=== PATIENT | female | born 1990 | race Caucasian/White ===

== ENCOUNTER 2016-09-23 20:07 | Emergency (ER) | payer OTHER ==
[~2016-09-23] VITALS: Ht 165.1 cm; Wt 110.2 kg
[~2016-09-23 20:07] MED LIST: ACET-1256 PO; ALBU1AER9 INH; FLUT0.15 NAE; FLX/5 PO; MEDR150I IM
[2016-09-23 20:44] VITALS: TEMP 36.7; Ht 165.1 cm; Wt 110.2 kg
[2016-09-23] MEDS ORDERED: BSP/10 PO (20:55)
[2016-09-23] MEDS ORDERED: VST25HP PO (20:55)
[2016-09-23] MEDS ORDERED: LXP10 PO (20:55)
[2016-09-23] MEDS ORDERED: ESCI1TAB6 PO (20:55)
[2016-09-23] MEDS ORDERED: HYDR-5688 PO (21:41)
[2016-09-23] MEDS ORDERED: NORCO 5/325MG HOME PACK PO ONE (21:45)
[2016-09-23] MEDS ORDERED: NEOMYCIN/POLYMYX/HYDROCORT OT SUSP 10 ML BTL OT ONE (21:45)
[2016-09-23 22:10] VITALS: BP 128/86; PULSE 100; O2SAT 97
--- NOTE | 2016-09-25 00:06 | EMERGENCY ROOM VISIT NOTE ---
ED Visit Note First contact with patient: 21:23 Chief Complaint: Left ear pain. History of Present Illness: Ms. Mendez is a 25-year-old white female who ambulates into the ED accompanied by her daughter complaining of severe left ear pain. Patient reports over the last 4-5 days she reports that she has had nasal and sinus congestion. Today approximately 3 hours earlier she reports she was not able to hear out of her left ear. She reports she put a Q-tip in the ear to add pressure against the loving to see if she could hear better and she could not. Then approximately an hour later she started developing left ear pain. Initially it was mildly gradually increased in intensity. Currently she describes it as a sharp and throbbing sensation. She rates her discomfort 10/ 10. The pain is radiating into the congregation, into the preauricular area, into the angle of the mandible and the lateral aspect of the neck. Her pain worsens with palpation of the ear or lying on that side of her head. She has not identified any alleviating factors related to the pain. She has not taken any medications for pain prior to arrival at the hospital. Associated with her pain she reports she has been having chills but no ruthann fever, she still cannot hear out of her ear and she is still having congestion. She denies skin eruptions, skin color changes, dizziness, lightheadedness, ear drainage, sore throat, difficulty speaking, neck pain/stiffness, cough, wheezing , shortness of breath, decreased appetite, nausea/vomiting. Review of Systems: As noted above in history of present illness. 8 body systems were reviewed and found to be negative as noted above. Past Medical History: Bronchitis, pneumonia, status post unspecified ankle surgery and tonsillectomy. Current Medications: Flonase, Tylenol, Lexapro, Buspirone, Escitalopram, Hydroxyzine Pamoate, Allergies to Medications: Patient denies. Social History: Patient is currently employed; she feels safe in her home environment; she admits to tobacco and alcohol use. Physical Examination: Vital Signs: Date Time Temp Pulse Resp B/P Pulse Ox O2 Delivery O2 Flow Rate FiO2 09/23/16 22:10 100 18 128/86 97 09/23/16 20:44 36.7 118 20 120/77 94 Room Air GENERAL: 25-year-old female in moderate distress due to pain, nontoxic-appearing , afebrile and hemodynamically stable. NEUROLOGICAL: Awake, alert and oriented to person, place and time. Answering questions appropriately and following commands. Normal gait. Good hand eye coordination. No focal motor or sensory deficits. SKIN: Warm, dry and pink. No soft tissue eruptions or trauma noted. HEENT: Atraumatic and normocephalic. PERRLA. Sclera white and conjunctiva pink without drainage. No drainage from naris but moderate audible congestion. No erythema or tenderness over the frontal or maxillary sinuses. Right external ear is nontender. Right auditory canal is pink and patent. Right tympanic membrane was nonerythematous or edematous within normal light reflex. Left external ear was exquisitely tender. Positive tracheal tenderness. The visible portion of the canal was erythematous and edematous. Only a very small portion of the tympanic membrane was visualized and was not erythematous or edematous. No tenderness or erythema over the mastoid processes. No malocclusion. No oral trauma. Airway pain. Uvula midline. No posterior pharyngeal erythema or edema or exudates. Speech normal. No lymphadenopathy. Trachea midline. No jugular venous distention. BACK: No tenderness over the bony cervical and thoracic spine. No nuchal rigidity. Full range of motion of the cervical spine. THORAX: Lungs sounds are clear to auscultation and equal bilaterally with symmetrical chest wall. ABDOMEN: Obese, soft and nontender. Positive bowel sounds in all quadrants. No guarding, rigidity or organomegaly. ED Course: Patient is assessed as noted above. 4 drops of Cortisporin otic suspension was placed in the left ear canal. I did offer the patient narcotic pain control but she drove to the hospital was not able to take it. Patient was educated about tonight's findings and instructed on her treatment plan; she verbalizes understanding and agreement with this plan. Clinical Impression: Acute otitis externa. Congestion. Disposition: Patient discharged home in stable condition accompanied by her daughter; prior to departure she was reassessed and subjectively reported she was feeling the same. Plan: Patient was prescribed Cortisporin otic suspension and instructed to use 4 drops in the left ear canal 4 times a day for 5-7 days. Patient was placed on a sliding pain medication scale of ibuprofen, Mcclusky and acetaminophen; narcotic precautions were discussed with the patient. Patient was encouraged use an noai-zdk-bcaphne decongestant. Patient was encouraged to follow-up with her family physician for recheck. Patient was encouraged not to put anything even bathwater into her left ear until resolution of pain. Patient was encouraged return to the ED for worsening pain, fevers, bloody ear drainage or any new/concerning symptoms.
[2016-11-25] MEDS ORDERED: HYDR50CA2 PO (21:08)
[2016-11-25] MEDS ORDERED: NRN100 PO (21:08)
[2017-04-28] MEDS ORDERED: FLNIN/ NAE (16:24)
[2017-04-28] MEDS ORDERED: LRS20 PO (16:24)
[2017-04-28] MEDS ORDERED: ULT50 PO (16:24)
[2017-04-28] MEDS ORDERED: NRN/600 PO (16:24)
== END 2016-09-23 22:10 | disposition home or self-care (01) ==
LOC: C.EDB 20:09 → C.EDD 22:10
DX: H60.502 Unspecified acute noninfective otitis externa, left ear (principal); R09.81 Nasal congestion; Z87.01 Personal history of pneumonia (recurrent); Z79.899 Other long term (current) drug therapy; F17.200 Nicotine dependence, unspecified, uncomplicated

== ENCOUNTER 2016-11-12 19:08 | Emergency (ER) | payer OTHER ==
[~2016-11-12] VITALS: Ht 165.1 cm; Wt 111.9 kg
[~2016-11-12 19:08] MED LIST changes: -ALBU1AER9 INH; +BSP/10 PO; +ESCI1TAB6 PO; -FLX/5 PO; +HYDR-5688 PO; +LXP10 PO; -MEDR150I IM; +VST25HP PO
[2016-11-12 19:12] VITALS: TEMP 36.7; Ht 165.1 cm; Wt 111.9 kg
[2016-11-12] MEDS ORDERED: BUPR100T8 PO (19:45)
--- NOTE | 2016-11-12 20:11 | DIAGNOSTIC IMAGING REPORT ---
THORACIC SPINE 3 VIEWS HISTORY: Pain upper back pain COMPARISON: None. FINDINGS: There is no fracture. No subluxation. Disc spaces are preserved. IMPRESSION: No fracture or subluxation within the thoracic spine. Electronically signed by: Jesus Stanley M.D. 11/12/2016 8:10 PM Dictated Date/Time: 11/12/2016 8:10 PM
--- NOTE | 2016-11-12 20:11 | DIAGNOSTIC IMAGING REPORT ---
RIGHT SHOULDER MIN 2 VIEWS ROUTINE CLINICAL HISTORY: right shoulder pain Right pain COMPARISON: None. DISCUSSION: The bones and joint spaces appear intact. There is no evidence of fracture, dislocation or bony disease. There is no evidence for soft tissue swelling. IMPRESSION: Negative study. Electronically signed by: Jesus Stanley M.D. 11/12/2016 8:10 PM Dictated Date/Time: 11/12/2016 8:09 PM
[2016-11-12] MEDS ORDERED: MoRPHine SULFATE 10 MG/ML CARP/VIAL IM STA (20:14)
[2016-11-12] MEDS ORDERED: KETOROLAC TROMETHAMINE 60 MG/2 ML VIAL IM STA (20:14)
[2016-11-12] MEDS ORDERED: HYDR-5688 PO (21:06)
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
[2016-11-12] MEDS ORDERED: NORCO 5/325MG HOME PACK PO ONE (21:15)
[2016-11-12 21:22] VITALS: BP 125/92; PULSE 95; O2SAT 98
[2016-11-25] MEDS ORDERED: HYDR50CA2 PO (21:08)
[2016-11-25] MEDS ORDERED: NRN100 PO (21:08)
[2017-04-28] MEDS ORDERED: NRN/600 PO (16:24)
[2017-04-28] MEDS ORDERED: ULT50 PO (16:24)
[2017-04-28] MEDS ORDERED: LRS20 PO (16:24)
[2017-04-28] MEDS ORDERED: FLNIN/ NAE (16:24)
== END 2016-11-12 21:24 | disposition home or self-care (01) ==
LOC: C.EDB 19:11 → C.EDD 21:24
DX: M25.511 Pain in right shoulder (principal); F17.210 Nicotine dependence, cigarettes, uncomplicated; J45.909 Unspecified asthma, uncomplicated; Z79.899 Other long term (current) drug therapy

== ENCOUNTER 2016-12-20 14:43 | Emergency (ER) | payer OTHER ==
[~2016-12-20] VITALS: Ht 165.1 cm; Wt 114.0 kg
[~2016-12-20 14:43] MED LIST changes: -BSP/10 PO; +BUPR100T8 PO; -ESCI1TAB6 PO; -HYDR-5688 PO; +HYDR50CA2 PO; +NRN100 PO; -VST25HP PO
[2016-12-20 14:51] VITALS: Ht 165.1 cm; Wt 114.0 kg
[2016-12-20] MEDS ORDERED: SODIUM CHLORIDE 0.9% 1000ML 1,000 ML IV STA (15:23)
[2016-12-20] MEDS ORDERED: MoRPHine SULFATE 4 MG/ML 1 ML CARP\\VIAL IV STA (15:31)
[2016-12-20] MEDS ORDERED: ONDANSETRON INJ 2 MG/ML 2 ML VIAL IV STA (15:31)
--- NOTE | 2016-12-20 15:35 | EMERGENCY ROOM VISIT NOTE ---
History Report prepared by [place]: Drake Pérez Under the Supervision of: Dr. Amna Azar M.D. First contact with patient: 15:04 Chief Complaint: ABDOMINAL PAIN Stated Complaint: LOWER ABD PAIN Nursing Triage Summary: left sided abd pain no vag bleeding or discharge or urinary complaints History of Present Illness The patient is a 26 year old female who presents to the Emergency Room with complaints of persistent left-sided abdominal pain that started last night. The patient cannot move or cough without significant pain. The pain was initially sharp at onset last night. The patient suddenly felt like her abdomen was "pulling" and "ripping" after laying back earlier today. The patient currently describes a burning sensation in the area when she is sitting still. The patient denies urinary symptoms. The patient denies the possibility of secondary to having a negative test last week performed by her PCP. The patient denies any past surgical history of the abdomen. She recently started a new medication for inflammation in her hip. The patient smokes about one pack of cigarettes per day. Source of History: patient Onset: last night Position: abdomen (left side) Quality: burning, sharp Timing: other (persistent) Modifying Factors (Worsening): movement Associated Symptoms: No urinary symptoms Review of Systems See HPI for pertinent positives & negatives. A total of 10 systems reviewed and were otherwise negative. Past Medical & Surgical Medical Problems: (1) Abdominal cramping (2) Abdominal pain (3) Ankle fracture (4) Asthma (5) Asthma (6) bent tailbone (7) Bronchitis (8) Bronchitis (9) Bronchitis (10) Concussion (11) Costochondral pain (12) Dehydration (13) Emphysema lung (14) Fever (15) Hand laceration (16) Headache (17) Injury, nerve, sciatic (18) LABOR (19) Left hip pain (20) Low back pain (21) Nausea vomiting and diarrhea (22) Nausea vomiting and diarrhea (23) Neck pain (24) Pharyngitis (25) labor (26) Sinusitis (27) Spasm of back muscles (28) Ulcer (29) Vomiting and diarrhea Surgical Problems: (1) History of tonsillectomy Family History Cancer Diabetes mellitus FH: kidney disease Gallbladder disease Heart disease Hypertension Social History Smoking Status: Current Every Day Smoker Alcohol Use: none Marital Status: single Housing Status: lives with family Occupation Status: employed Current/Historical Medications Scheduled Bupropion (Wellbutrin Sr), 100 MG PO QAM Escitalopram Oxalate (Escitalopram Oxalate), 20 MG PO QAM Omeprazole (Prilosec), 20 MG PO DAILY Scheduled PRN Albuterol Hfa (Ventolin Hfa), 2-4 PUFFS INH Q6H PRN for SOB/Wheezing Fluticasone Propionate (Nasal) (Flonase Allergy Relief), 2 SPRAYS ASHA DAILY PRN for Nasal Congestion Hydroxyzine Pamoate (Vistaril), 50 MG PO HS PRN for Anxiety Allergies Coded Allergies: Fish Allergy (Verified Allergy, Unknown, ANAPHYLAXIS, 11/25/16) allergic to all fish and seafood Shellfish Allergy (Verified Allergy, Unknown, ANAPHYLAXIS, 11/25/16) allergic to all fish and seafood Physical Exam Vital Signs Date Time Temp Pulse Resp B/P (MAP) Pulse Ox O2 Delivery O2 Flow Rate FiO2 12/20/16 18:36 37.1 72 14 131/89 95 12/20/16 18:06 72 95 12/20/16 18:01 131/89 12/20/16 17:36 79 96 12/20/16 17:31 140/84 12/20/16 17:23 77 96 12/20/16 17:18 81 97 12/20/16 17:08 140/83 12/20/16 16:30 138/82 12/20/16 16:18 75 14 100 12/20/16 16:13 78 17 100 12/20/16 16:04 85 12/20/16 16:00 120/91 12/20/16 15:52 85 18 123/82 100 Room Air 12/20/16 15:49 123/82 12/20/16 14:51 37.1 94 18 128/88 98 Room Air Physical Exam Vital signs reviewed. General: Well-appearing female, in no significant distress. HEENT: No scleral icterus, PERRLA, neck supple. Atraumatic. Cardiovascular: Regular rate and rhythm, no extra sounds. Pulmonary: Clear to auscultation bilaterally, normal work of breathing. Abdomen: Obese, soft, left-sided tenderness, no rebound or guarding. Musculoskeletal: Atraumatic, no peripheral edema. Neurologic: Patient awake alert and oriented x 3 Skin: Warm, dry, no rash Medical Decision & Procedures ER Provider Diagnostic Interpretation: Radiology results as stated below per my review and radiologist interpretation: CT SCAN OF THE ABDOMEN AND PELVIS WITH IV CONTRAST CLINICAL HISTORY: Left lower quadrant abdominal pain. COMPARISON STUDY: Abdominal CT dated 02/07/2016. TECHNIQUE: Following the IV administration of 115 cc of Optiray 320, CT scan of the abdomen and pelvis is performed from the lung bases to the proximal femora. Images are reviewed in the axial, sagittal, and coronal planes. IV contrast was administered without complication. Automated dose control exposure was utilized. The examination is degraded by large body habitus, and by streak artifact from the body wall abutting the CT gantry. CT DOSE: 1296.33 mGy.cm FINDINGS: Lung bases: The heart is normal in size and without pericardial effusion. The lung bases are clear. Liver: The contrast-enhanced liver is enlarged, measuring 21.7 cm in length. Liver demonstrates diffusely diminished attenuation consistent with hepatic steatosis. There is no intrahepatic biliary ductal dilatation. The hepatic veins and portal veins are patent. Gallbladder: Unremarkable. Spleen: Normal in size and attenuation. Pancreas: Unremarkable. Adrenal glands: Unremarkable. Kidneys: The contrast enhanced kidneys are normal in size and without hydronephrosis. The kidneys enhance symmetrically. Abdominal vasculature: The abdominal aorta is normal in course and caliber. Bowel: The small bowel and colon are normal in course and caliber. Colonic fecal retention is observed. The appendix is well-visualized and normal. Peritoneum: There is no intraperitoneal free air or abdominal ascites. There is a small fat-containing umbilical hernia. Lymphadenopathy: None. Pelvic viscera: The bladder, uterus, and adnexa are normal as visualized. There are bilateral ovarian follicles. A dominant follicle in the left ovary measures up to 2.9 cm. Skeletal structures: No lytic or blastic lesions are seen. IMPRESSION: 1. There are no acute infectious or inflammatory findings in the abdomen or pelvis. 2. Hepatomegaly and hepatic steatosis. Electronically signed by: Stephane Booth M.D. 12/20/2016 4:58 PM Dictated Date/Time: 12/20/2016 4:54 PM Laboratory Results 12/20/16 15:36 Red Blood Count 4.25, Mean Corpuscular Volume 89.4, Mean Corpuscular Hemoglobin 30.8, Mean Corpuscular Hemoglobin Concent 34.5, Mean Platelet Volume 12.1, Neutrophils (%) (Auto) 65.2, Lymphocytes (%) (Auto) 27.1, Monocytes (%) (Auto) 5.9, Eosinophils (%) (Auto) 1.4, Basophils (%) (Auto) 0.2, Neutrophils # (Auto) 6.12, Lymphocytes # (Auto) 2.54, Monocytes # (Auto) 0.55, Eosinophils # (Auto) 0.13, Basophils # (Auto) 0.02 12/20/16 15:36 Test 12/20/16 15:36 12/20/16 17:30 White Blood Count 9.38 K/uL (4.8-10.8) Red Blood Count 4.25 M/uL (4.2-5.4) Hemoglobin 13.1 g/dL (12.0-16.0) Hematocrit 38.0 % (37-47) Mean Corpuscular Volume 89.4 fL (80-100) Mean Corpuscular Hemoglobin 30.8 pg (25-34) Mean Corpuscular Hemoglobin Concent 34.5 g/dl (32-36) Platelet Count 217 K/uL (130-400) Mean Platelet Volume 12.1 fL (7.4-10.4) Neutrophils (%) (Auto) 65.2 % Lymphocytes (%) (Auto) 27.1 % Monocytes (%) (Auto) 5.9 % Eosinophils (%) (Auto) 1.4 % Basophils (%) (Auto) 0.2 % Neutrophils # (Auto) 6.12 K/uL (1.4-6.5) Lymphocytes # (Auto) 2.54 K/uL (1.2-3.4) Monocytes # (Auto) 0.55 K/uL (0.11-0.59) Eosinophils # (Auto) 0.13 K/uL (0-0.5) Basophils # (Auto) 0.02 K/uL (0-0.2) RDW Standard Deviation 43.0 fL (36.4-46.3) RDW Coefficient of Variation 13.2 % (11.5-14.5) Immature Granulocyte % (Auto) 0.2 % Immature Granulocyte # (Auto) 0.02 K/uL (0.00-0.02) Anion Gap 8.0 mmol/L (3-11) Est Creatinine Clear Calc Drug Dose 141.9 ml/min Estimated GFR () 125.3 Estimated GFR (Non- 108.1 BUN/Creatinine Ratio 19.7 (10-20) Calcium Level 9.2 mg/dl (8.5-10.1) Total Bilirubin 0.3 mg/dl (0.2-1) Direct Bilirubin < 0.1 mg/dl (0-0.2) Aspartate Amino Transf (AST/SGOT) 15 U/L (15-37) Alanine Aminotransferase (ALT/SGPT) 31 U/L (12-78) Alkaline Phosphatase 138 U/L (45-117) Total Protein 6.9 gm/dl (6.4-8.2) Albumin 3.6 gm/dl (3.4-5.0) Lipase 112 U/L (73-393) Human Chorionic Gonadotropin, Qual NEG (NEG) Urine Color YELLOW Urine Appearance CLEAR (CLEAR) Urine pH 5.5 (4.5-7.5) Urine Specific [place] 1.019 (1.000-1.030) Urine Protein NEG (NEG) Urine Glucose (UA) NEG (NEG) Urine Ketones NEG (NEG) Urine Occult Blood NEG (NEG) Urine Nitrite NEG (NEG) Urine Bilirubin NEG (NEG) Urine Urobilinogen NEG (NEG) Urine Leukocyte Esterase NEG (NEG) Laboratory results per my review. Medications Administered Medications (Trade) Dose Ordered Sig/Eva Route Start Time Stop Time Status Last Admin Dose Admin Sodium Chloride 1,000 ml @ 999 mls/hr Q1H1M STAT IV 12/20/16 15:23 12/20/16 16:23 DC 12/20/16 15:45 999 MLS/HR Morphine Sulfate (MoRPHine SULFATE INJ) 4 mg NOW STAT IV 12/20/16 15:31 12/20/16 15:33 DC 12/20/16 15:46 4 MG Ondansetron HCl (Zofran Inj) 4 mg NOW STAT IV 12/20/16 15:31 12/20/16 15:33 DC 12/20/16 15:45 4 MG Ketorolac Tromethamine (Toradol Inj) 30 mg NOW STAT IV 12/20/16 17:44 12/20/16 17:45 DC 12/20/16 17:49 30 MG ED Course 1520: Past medical records reviewed. The patient was evaluated in room A10. A complete history and physical examination was performed. 1523: NSS 1000 ml @ 999 mls/hr. 1531: Zofran 4 mg IV, Morphine Sulfate 4 mg IV. 1744: Toradol 30 mg IV. 1835: Discussed the workup with the patient. She is ready for discharge. Medical Decision Differential diagnosis: Etiologies such as appendicitis, diverticulitis, PUD, biliary pathology, UTI, pancreatitis, obstruction, mesenteric ischemia, aortic pathology, infections, inflammatory bowel disease, renal colic, as well as others were entertained. Blood Pressure Screening: Patient was found to have a slightly elevated blood pressure that is likely due to circumstances. I do not believe that the patient requires hypertension monitoring. Medication Reconciliation: I attest that I have personally reviewed the patient' s current medication list. This pt was evaluated and appeared to be in no distress. IV access was evaluated and appeared to be in some discomfort. Pt was placed on the front desk monitor. Pt was hydrated with NSS, given IV morphine and zofran for pain. CT scan of abd/pain was performed and is negative for acute intracranial abnl. Lab work is unrevealing. UA and preg are negative. Pt was given IV toradol for continued pain. She was informed of the findings. Smoking cessation was discussed. She was encouraged to f/u with PCP this week and to return to the ED for worsening of symptoms or any medical concerns. Impression Primary Impression: Left sided abdominal pain Scribe Attestation The scribe's documentation has been prepared under my direction and personally reviewed by me in its entirety. I confirm that the note above accurately reflects all work, treatment, procedures, and medical decision making performed by me. Departure Information Dispostion Home / Self-Care Prescriptions Omeprazole (PRILOSEC) 20 Mg Capcr 20 MG PO DAILY, #30 CAP Prov: Amna Azar M.D. 12/20/16 Referrals No Doctor, Assigned (PCP) Forms HOME CARE DOCUMENTATION FORM, IMPORTANT VISIT INFORMATION Patient Instructions My [facility] Additional Instructions Diagnosis: Left-sided abdominal pain Tylenol 650 mg every 6 hours as needed for pain. Prilosec 20 mg daily for 30 days. Follow-up with your physician this week for reevaluation. Avoid greasy and spicy foods. Avoid alcohol, coffee, soda, aspirin, Aleve and ibuprofen. Return to the emergency department for worsening of symptoms or any medical concerns.
[2016-12-20 15:59] LABS: BASO % 0.2 %; BASO ABS # 0.02 K/uL (0-0.2); COMPLETE YES; EOS % 1.4 %; IG% 0.2 %; LYMPH % 27.1 %; LYMPH ABS # 2.54 K/uL (1.2-3.4); MEAN CELL VOLUME 89.4 fL (80-100); MEAN CORPUSCULAR HEMOGLOBIN 30.8 pg (25-34); MEAN CORPUSCULAR HGB CONC 34.5 g/dl (32-36); MEAN PLATELET VOLUME 12.1 fL (7.4-10.4); MONO % 5.9 %; NEUT % 65.2 %; PLATELET COUNT 217 K/uL (130-400); RED BLOOD COUNT 4.25 M/uL (4.2-5.4); WHITE BLOOD COUNT 9.38 K/uL (4.8-10.8)
[2016-12-20 16:15] LABS: ALT/SGPT 31 U/L (12-78); AST/SGOT 15 U/L (15-37); BLOOD UREA NITROGEN 15 mg/dl (7-18); BUN/CREATININE RATIO 19.7 (10-20); CALCIUM 9.2 mg/dl (8.5-10.1); CARBON DIOXIDE 25 mmol/L (21-32); CHLORIDE 107 mmol/L (98-107); CREATININE 0.77 mg/dl (0.60-1.20); GLUCOSE 80 mg/dl (70-99); POTASSIUM 3.9 mmol/L (3.5-5.1); SODIUM 140 mmol/L (136-145)
[2016-12-20 16:16] LABS: PREG INTERNAL NEGATIVE QC NEG CLEAR BACKGROUND; PREG INTERNAL POSITIVE QC POS CONTROL LINE
[2016-12-20 16:17] LABS: ALKALINE PHOSPHATASE 138 U/L (45-117)
[2016-12-20] MEDS ORDERED: VNTHFA/IN INH (16:25)
--- NOTE | 2016-12-20 16:59 | DIAGNOSTIC IMAGING REPORT ---
CT SCAN OF THE ABDOMEN AND PELVIS WITH IV CONTRAST CLINICAL HISTORY: Left lower quadrant abdominal pain. COMPARISON STUDY: Abdominal CT dated 02/07/2016. TECHNIQUE: Following the IV administration of 115 cc of Optiray 320, CT scan of the abdomen and pelvis is performed from the lung bases to the proximal femora. Images are reviewed in the axial, sagittal, and coronal planes. IV contrast was administered without complication. Automated dose control exposure was utilized. The examination is degraded by large body habitus, and by streak artifact from the body wall abutting the CT gantry. CT DOSE: 1296.33 mGy.cm FINDINGS: Lung bases: The heart is normal in size and without pericardial effusion. The lung bases are clear. Liver: The contrast-enhanced liver is enlarged, measuring 21.7 cm in length. Liver demonstrates diffusely diminished attenuation consistent with hepatic steatosis. There is no intrahepatic biliary ductal dilatation. The hepatic veins and portal veins are patent. Gallbladder: Unremarkable. Spleen: Normal in size and attenuation. Pancreas: Unremarkable. Adrenal glands: Unremarkable. Kidneys: The contrast enhanced kidneys are normal in size and without hydronephrosis. The kidneys enhance symmetrically. Abdominal vasculature: The abdominal aorta is normal in course and caliber. Bowel: The small bowel and colon are normal in course and caliber. Colonic fecal retention is observed. The appendix is well-visualized and normal. Peritoneum: There is no intraperitoneal free air or abdominal ascites. There is a small fat-containing umbilical hernia. Lymphadenopathy: None. Pelvic viscera: The bladder, uterus, and adnexa are normal as visualized. There are bilateral ovarian follicles. A dominant follicle in the left ovary measures up to 2.9 cm. Skeletal structures: No lytic or blastic lesions are seen. IMPRESSION: 1. There are no acute infectious or inflammatory findings in the abdomen or pelvis. 2. Hepatomegaly and hepatic steatosis. Electronically signed by: Stephane Booth M.D. 12/20/2016 4:58 PM Dictated Date/Time: 12/20/2016 4:54 PM
[2016-12-20] MEDS ORDERED: OPTIRAY 320 IV PRN (17:00)
[2016-12-20 17:42] LABS: URINE APPEARANCE CLEAR (CLEAR); URINE BILIRUBIN NEG (NEG); URINE COLOR YELLOW; URINE NITRITE NEG (NEG); URINE PH 5.5 (4.5-7.5); URINE SPECIFIC GRAVITY 1.019 (1.000-1.030); UROBILINOGEN NEG (NEG); ZZUR CULT IF INDIC CLEAN CATCH NO
[2016-12-20] MEDS ORDERED: KETOROLAC TROMETHAMINE 30 MG/ML VIAL IV STA (17:44)
[2016-12-20 17:50] LABS: MANUAL MICROSCOPIC REQUIRED? NO; REVIEW REQ? NO
[2016-12-20] MEDS ORDERED: PRLSR20 PO (18:13)
[2016-12-20 18:36] VITALS: BP 131/89; PULSE 72; TEMP 37.1; O2SAT 95
== END 2016-12-20 18:40 | disposition home or self-care (01) ==
LOC: C.EDB 14:43 → C.EDA 18:40
DX: R10.9 Unspecified abdominal pain (principal); J45.909 Unspecified asthma, uncomplicated; J43.9 Emphysema, unspecified; F17.200 Nicotine dependence, unspecified, uncomplicated; Z87.820 Personal history of traumatic brain injury; Z87.81 Personal history of (healed) traumatic fracture; Z98.890 Other specified postprocedural states; Z79.899 Other long term (current) drug therapy; Z91.018 Allergy to other foods; Z80.9 Family history of malignant neoplasm, unspecified; Z83.3 Family history of diabetes mellitus; Z84.1 Family history of disorders of kidney and ureter; Z83.79 Family history of other diseases of the digestive system; Z82.49 Family history of ischemic heart disease and other diseases of the circulatory system

== ENCOUNTER 2016-12-24 16:12 | Emergency (ER) | payer OTHER ==
[~2016-12-24] VITALS: Ht 165.1 cm; Wt 114.5 kg
[~2016-12-24 16:12] MED LIST changes: -ACET-1256 PO; -NRN100 PO; +PRLSR20 PO; +VNTHFA/IN INH
[2016-12-24 16:15] VITALS: TEMP 36.9; Ht 165.1 cm; Wt 114.5 kg
[2016-12-24] MEDS ORDERED: ONDANSETRON INJ 2 MG/ML 2 ML VIAL IV STA (16:46)
[2016-12-24] MEDS ORDERED: SODIUM CHLORIDE 0.9% 1000ML 1,000 ML IV STA (16:46)
[2016-12-24] MEDS ORDERED: MoRPHine SULFATE 10 MG/ML CARP/VIAL IV STA (16:46)
--- NOTE | 2016-12-24 16:57 | EMERGENCY ROOM VISIT NOTE ---
History First contact with patient: 16:19 Chief Complaint: ABDOMINAL PAIN Stated Complaint: SEVERE PAIN IN LOWER ABDOMEN-PHYSICIAN REFERRED Nursing Triage Summary: Abdominal pain left lower quadrant for a week and a half which has progressively gotten worse. History of Present Illness The patient is a 26 year old female who presents to the Emergency Room with complaints of abdominal pain. The patient has had abdominal pain for the last 1.5 weeks. She was seen here 4 days ago and had an unremarkable workup including laboratory studies and CT of the abdomen and pelvis. The patient saw her family doctor today and had a pelvic ultrasound and blood work. She states that her pain is severe and persistent so she presents to the emergency department. She rates her discomfort a 10/10. She denies any fevers or chills. She denies any pain in her chest or trouble breathing. She denies any urinary symptoms. Review of Systems A 10 system review of systems was completed with positives and pertinent negatives listed in the HPI. Past Medical/Surgical History Medical Problems: (1) Abdominal cramping (2) Abdominal pain (3) Ankle fracture (4) Asthma (5) Asthma (6) bent tailbone (7) Bronchitis (8) Bronchitis (9) Bronchitis (10) Concussion (11) Costochondral pain (12) Dehydration (13) Emphysema lung (14) Fever (15) Hand laceration (16) Headache (17) Injury, nerve, sciatic (18) LABOR (19) Left hip pain (20) Low back pain (21) Nausea vomiting and diarrhea (22) Nausea vomiting and diarrhea (23) Neck pain (24) Pharyngitis (25) labor (26) Sinusitis (27) Spasm of back muscles (28) Ulcer (29) Vomiting and diarrhea Surgical Problems: (1) History of tonsillectomy Family History Cancer Diabetes mellitus FH: kidney disease Gallbladder disease Heart disease Hypertension Social History Smoking Status: Current Every Day Smoker Alcohol Use: none Marital Status: single Housing Status: lives with family Occupation Status: employed Current/Historical Medications Scheduled Bupropion (Wellbutrin Sr), 100 MG PO QAM Escitalopram Oxalate (Escitalopram Oxalate), 20 MG PO QAM Scheduled PRN Albuterol Hfa (Ventolin Hfa), 2-4 PUFFS INH Q6H PRN for SOB/Wheezing Fluticasone Propionate (Nasal) (Flonase Allergy Relief), 2 SPRAYS ASHA DAILY PRN for Nasal Congestion Hydroxyzine Pamoate (Vistaril), 50 MG PO HS PRN for Anxiety Oxycodone Ir (Roxicodone Ir), 1 TAB PO Q6 PRN for Pain Allergies Coded Allergies: Fish Allergy (Verified Allergy, Unknown, ANAPHYLAXIS, 11/25/16) allergic to all fish and seafood Shellfish Allergy (Verified Allergy, Unknown, ANAPHYLAXIS, 11/25/16) allergic to all fish and seafood Physical Exam Vital Signs Date Time Temp Pulse Resp B/P (MAP) Pulse Ox O2 Delivery O2 Flow Rate FiO2 12/24/16 18:11 88 15 153/87 98 Room Air 12/24/16 17:12 81 12/24/16 16:15 36.9 98 18 124/82 97 Room Air Physical Exam VITALS: Vitals are noted on the nurse's note and reviewed by myself. Vital signs stable. The patient is afebrile. GENERAL: This is a 26-year-old female, in no acute distress, nondiaphoretic, well-developed well-nourished. SKIN: The skin was without rashes, erythema, edema, or bruising. There is no tenting of the skin. Capillary reflex less than 2 seconds. HEAD: Normocephalic atraumatic. EARS: The external ears are normal in appearance. EYES: Pupils equal round and reactive to light and accommodation. Conjunctivae without injection, sclerae without icterus. Extraocular movements intact. NOSE: Patent, turbinates without inflammation or discharge. MOUTH: Mucous membranes moist. Tonsils are not enlarged. Pharynx without erythema or exudate. Uvula midline. Airway patent. Tongue does not deviate. NECK: Supple without nuchal rigidity. No lymphadenopathy. No thyromegaly. Cervical spine is nontender. No JVD. HEART: Regular rate and rhythm without murmurs gallops or rubs. LUNGS: Clear to auscultation bilaterally without wheezes, rales or rhonchi. No retractions or accessory muscle use. ABDOMEN: Positive bowel sounds x 4. Soft, moderate left lower quadrant tenderness, without masses or organomegaly. Rivera sign negative. MUSCULOSKELETAL: No muscle atrophy, erythema, or edema noted. Full range of motion in all extremities. Strength 5/5 throughout. NEURO: Patient was alert and oriented to person place and time. No focal neurological deficits. Medical Decision & Procedures ER Provider Diagnostic Interpretation: Report from outpatient transvaginal ultrasound completed today at 3:42 PM was reviewed. The impression was #1 5. uterus. Number to bulb this appearance of the posterior myometrium without focal mass identified. Consider six-month follow-up. #3 left ovarian follicles/cyst measuring up to 26 mm. Laboratory Results 12/24/16 16:50 Red Blood Count 4.59, Mean Corpuscular Volume 88.5, Mean Corpuscular Hemoglobin 29.4, Mean Corpuscular Hemoglobin Concent 33.3, Mean Platelet Volume 11.9, Neutrophils (%) (Auto) 65.6, Lymphocytes (%) (Auto) 26.5, Monocytes (%) (Auto) 5.5, Eosinophils (%) (Auto) 1.8, Basophils (%) (Auto) 0.4, Neutrophils # (Auto) 6.27, Lymphocytes # (Auto) 2.53, Monocytes # (Auto) 0.53, Eosinophils # (Auto) 0.17, Basophils # (Auto) 0.04 12/24/16 16:50 Test 12/24/16 16:50 White Blood Count 9.56 K/uL (4.8-10.8) Red Blood Count 4.59 M/uL (4.2-5.4) Hemoglobin 13.5 g/dL (12.0-16.0) Hematocrit 40.6 % (37-47) Mean Corpuscular Volume 88.5 fL (80-100) Mean Corpuscular Hemoglobin 29.4 pg (25-34) Mean Corpuscular Hemoglobin Concent 33.3 g/dl (32-36) Platelet Count 270 K/uL (130-400) Mean Platelet Volume 11.9 fL (7.4-10.4) Neutrophils (%) (Auto) 65.6 % Lymphocytes (%) (Auto) 26.5 % Monocytes (%) (Auto) 5.5 % Eosinophils (%) (Auto) 1.8 % Basophils (%) (Auto) 0.4 % Neutrophils # (Auto) 6.27 K/uL (1.4-6.5) Lymphocytes # (Auto) 2.53 K/uL (1.2-3.4) Monocytes # (Auto) 0.53 K/uL (0.11-0.59) Eosinophils # (Auto) 0.17 K/uL (0-0.5) Basophils # (Auto) 0.04 K/uL (0-0.2) RDW Standard Deviation 42.4 fL (36.4-46.3) RDW Coefficient of Variation 13.2 % (11.5-14.5) Immature Granulocyte % (Auto) 0.2 % Immature Granulocyte # (Auto) 0.02 K/uL (0.00-0.02) Urine Test NEG (NEG) Anion Gap 7.0 mmol/L (3-11) Est Creatinine Clear Calc Drug Dose 136.9 ml/min Estimated GFR () 119.6 Estimated GFR (Non- 103.2 BUN/Creatinine Ratio 13.0 (10-20) Calcium Level 9.4 mg/dl (8.5-10.1) Total Bilirubin 0.2 mg/dl (0.2-1) Aspartate Amino Transf (AST/SGOT) 21 U/L (15-37) Alanine Aminotransferase (ALT/SGPT) 34 U/L (12-78) Alkaline Phosphatase 153 U/L (45-117) Total Protein 7.1 gm/dl (6.4-8.2) Albumin 3.7 gm/dl (3.4-5.0) Globulin 3.4 gm/dl (2.5-4.0) Albumin/Globulin Ratio 1.1 (0.9-2) Lipase 138 U/L (73-393) Medications Administered Medications (Trade) Dose Ordered Sig/Eva Route Start Time Stop Time Status Last Admin Dose Admin Sodium Chloride 1,000 ml @ 999 mls/hr Q1H1M STAT IV 12/24/16 16:46 12/24/16 17:46 DC 12/24/16 16:46 999 MLS/HR Morphine Sulfate (MoRPHine SULFATE INJ) 6 mg NOW STAT IV 12/24/16 16:46 12/24/16 16:47 DC 12/24/16 17:03 6 MG Ondansetron HCl (Zofran Inj) 4 mg NOW STAT IV 12/24/16 16:46 12/24/16 16:47 DC 12/24/16 17:04 4 MG Morphine Sulfate (MoRPHine SULFATE INJ) 4 mg NOW STAT IV 12/24/16 18:02 12/24/16 18:04 DC 12/24/16 18:09 4 MG ED Course The patient was seen and examined. Previous visits were reviewed. The patient does not have a fever or leukocytosis. She does not have any significant electrolyte abnormality. Alkaline phosphatase is elevated at 153. Urine test was negative. Urine dip was negative for hematuria or urinary tract infection. The patient was hydrated with normal saline. She was given a total of 10 mg IV morphine and 4 mg IV Zofran. Outpatient ultrasound was reviewed as above. The patient had a negative CT scan of the abdomen and pelvis earlier this week. The patient states that the uterine fibroids are known. She was advised of the hepatic steatosis. The patient was given a small prescription for pain medication. She should follow-up with [employer] [employer] and her family doctor for further evaluation and management. She should return with any worsening symptoms. . The case was discussed with Dr. Sellers who agrees with the assessment and treatment plan. Medication Reconciliation: I attest that I have personally reviewed the patient' s current medication list. Blood pressure screening: The patient was found to have normal blood pressure on screening and does not require follow-up Medical Decision DIFFERENTIAL DIAGNOSIS: Hepatitis, cholecystitis, cholangitis, biliary colic, pancreatitis, pneumonia, subdiaphragmatic abscess, appendicitis, inguinal hernia , nephrolithiasis, inflammatory bowel disease, mesenteric adenitis, peptic ulcer disease, GERD, gastritis, pancreatitis, myocardial infarction, pericarditis, ruptured aortic aneurysm, appendicitis, gastroenteritis, bowel obstruction, splenic infarct, diverticulitis, mesenteric ischemia, metabolic, peritonitis, among others. [place] Drug Monitoring Program Search Results: patient reviewed within database, no issues identified Impression Primary Impression: Left lower quadrant pain Departure Information Dispostion Home / Self-Care Condition GOOD Prescriptions Oxycodone Ir (Roxicodone Ir) 5 Mg Tab 1 TAB PO Q6 Y for Pain, #10 TAB For Initial Treatment Prov: Maryjane Jerry PA-C 12/24/16 Referrals Jaz Lopez D.O. (PCP) Canan. Moreno MD Patient Instructions My [facility] [employer] Additional Instructions Contact [employer] tomorrow to schedule a follow-up appointment for further evaluation and management Oxy IR 1-2 tablets every 4-6 hrs as needed for worse pain. No driving or alcohol use with Oxy IR. Return with any fevers or worsening symptoms Work Instructions Return To Work: 1 day
[2016-12-24 17:23] LABS: BASO % 0.4 %; BASO ABS # 0.04 K/uL (0-0.2); COMPLETE YES; EOS % 1.8 %; HEMATOCRIT 40.6 % (37-47); IG% 0.2 %; LYMPH % 26.5 %; LYMPH ABS # 2.53 K/uL (1.2-3.4); MEAN CELL VOLUME 88.5 fL (80-100); MEAN CORPUSCULAR HEMOGLOBIN 29.4 pg (25-34); MEAN CORPUSCULAR HGB CONC 33.3 g/dl (32-36); MEAN PLATELET VOLUME 11.9 fL (7.4-10.4); MONO % 5.5 %; NEUT % 65.6 %; PLATELET COUNT 270 K/uL (130-400); RED BLOOD COUNT 4.59 M/uL (4.2-5.4); WHITE BLOOD COUNT 9.56 K/uL (4.8-10.8)
[2016-12-24 17:41] LABS: CALCIUM 9.4 mg/dl (8.5-10.1); CREATININE 0.8 mg/dl (0.60-1.20); POTASSIUM 3.7 mmol/L (3.5-5.1)
[2016-12-24 17:44] LABS: ALB/GLOB RATIO 1.1 (0.9-2)
[2016-12-24] MEDS ORDERED: MoRPHine SULFATE 4 MG/ML 1 ML CARP\\VIAL IV STA (18:02)
[2016-12-24] MEDS ORDERED: OXYC1TAB3 PO (18:03)
[2016-12-24 18:11] VITALS: BP 153/87; PULSE 88; O2SAT 98
== END 2016-12-24 18:27 | disposition home or self-care (01) ==
LOC: C.EDB 16:13 → C.EDA 18:27
DX: R10.32 Left lower quadrant pain (principal); J45.909 Unspecified asthma, uncomplicated; J43.9 Emphysema, unspecified; Z80.9 Family history of malignant neoplasm, unspecified; Z83.3 Family history of diabetes mellitus; Z84.1 Family history of disorders of kidney and ureter; Z82.49 Family history of ischemic heart disease and other diseases of the circulatory system; F17.210 Nicotine dependence, cigarettes, uncomplicated; Z79.899 Other long term (current) drug therapy

== ENCOUNTER 2016-12-29 12:54 | Inpatient (IN) | payer OTHER ==
[~2016-12-29] VITALS: Ht 165.1 cm; Wt 113.0 kg
[~2016-12-29 12:54] MED LIST changes: +OXYC1TAB3 PO; -PRLSR20 PO
[2016-12-29] MEDS ORDERED: ONDANSETRON INJ 2 MG/ML 2 ML VIAL IV STA ×2 (13:10→17:04)
[2016-12-29] MEDS ORDERED: SODIUM CHLORIDE 0.9% 1000ML 1,000 ML IV ONE ×2 (13:15→13:45)
[2016-12-29] MEDS ORDERED: OXYC-609 PO (13:16)
[2016-12-29] MEDS ORDERED: ACET-749 PO (13:16)
--- NOTE | 2016-12-29 13:34 | EMERGENCY ROOM VISIT NOTE ---
History First contact with patient: 13:03 Chief Complaint: DIARRHEA Stated Complaint: DIARRHEA, VOMITING, SORE Nursing Triage Summary: pt to [facility] ED with c/o n/v and dizziness and abd pain History of Present Illness The patient is a 26 year old female who presents to the Emergency Room with complaints of nausea, vomiting, diarrhea and lower abdominal pain that has been going on for the last few weeks. The patient says that she has had lower abdominal pain that she describes as a sharp, stabbing sensation that is constant over the last few weeks. She has had a CAT scan for this pain and also an ultrasound. She was told that she had an ovarian cyst and fibroids that were possibly causing her pain. The nausea, vomiting and diarrhea started this morning. She is also complaining of feeling feverish with chills and sweats. She did not take her temperature home. She has tried Tylenol 3 at home with minimal relief of the pain. She denies any vaginal discharge. Her last menstrual period was several months ago as she is on the Depo shot. She is sexually active with one partner. She denies any dysuria, hematuria or flank pain. She denies any coffee-ground emesis, bright red blood in her stool or dark stools. Review of Systems History of asthma, bronchitis, pneumonia Status post tonsillectomy and adenoidectomy, ankle surgery Past Medical/Surgical History Medical Problems: (1) Abdominal cramping (2) Abdominal pain (3) Ankle fracture (4) Asthma (5) Asthma (6) bent tailbone (7) Bronchitis (8) Bronchitis (9) Bronchitis (10) Concussion (11) Costochondral pain (12) Dehydration (13) Emphysema lung (14) Fever (15) Hand laceration (16) Headache (17) Injury, nerve, sciatic (18) LABOR (19) Left hip pain (20) Low back pain (21) Nausea vomiting and diarrhea (22) Nausea vomiting and diarrhea (23) Neck pain (24) Pharyngitis (25) labor (26) Sinusitis (27) Spasm of back muscles (28) Ulcer (29) Vomiting and diarrhea Surgical Problems: (1) History of tonsillectomy Family History Cancer Diabetes mellitus FH: kidney disease Gallbladder disease Heart disease Hypertension Social History Smoking Status: Current Every Day Smoker Alcohol Use: none Marital Status: single Housing Status: lives with family Occupation Status: employed Current/Historical Medications Scheduled Bupropion (Wellbutrin Sr), 100 MG PO QAM Escitalopram Oxalate (Escitalopram Oxalate), 20 MG PO QAM Scheduled PRN Acetaminophen/Codeine (Tylenol W/Codeine #3), 1 TAB PO Q4 PRN for Pain Albuterol Hfa (Ventolin Hfa), 2-4 PUFFS INH Q6H PRN for SOB/Wheezing Fluticasone Propionate (Nasal) (Flonase Allergy Relief), 2 SPRAYS ASHA DAILY PRN for Nasal Congestion Hydroxyzine Pamoate (Vistaril), 50 MG PO HS PRN for Anxiety Oxycodone HCl (Oxycodone HCl), 5 MG PO Q6 PRN for Pain Allergies Coded Allergies: Fish Allergy (Verified Allergy, Unknown, ANAPHYLAXIS, 11/25/16) allergic to all fish and seafood Shellfish Allergy (Verified Allergy, Unknown, ANAPHYLAXIS, 11/25/16) allergic to all fish and seafood Physical Exam Vital Signs Date Time Temp Pulse Resp B/P (MAP) Pulse Ox O2 Delivery O2 Flow Rate FiO2 12/29/16 21:39 37.2 97 16 133/81 96 Room Air 12/29/16 20:52 37.5 12/29/16 20:02 39.0 12/29/16 19:47 121 22 121/61 93 Room Air 12/29/16 19:13 120 16 129/62 93 Room Air 12/29/16 17:36 115 18 109/61 95 Room Air 12/29/16 16:46 114 20 96/47 95 Room Air 12/29/16 14:50 99 16 110/60 95 Room Air 12/29/16 12:56 37.9 137 20 109/76 96 Physical Exam VITALS: Vitals are noted on the nurse's note and reviewed by myself. Vital signs stable. GENERAL: 26-year-old female, in a moderate amount of distress SKIN: The skin was without rashes, erythema, edema, or bruising. HEAD: Normocephalic atraumatic. MOUTH: Mucous membranes dry. NECK: Supple without nuchal rigidity. No JVD. HEART: Tachycardic, regular rhythm without murmurs gallops or rubs. LUNGS: Clear to auscultation bilaterally without wheezes, rales or rhonchi. No accessory muscle use. ABDOMEN: Bowel sounds present, but hypoactive. Tenderness to palpation particularly in the left lower quadrant. No rebound tenderness appreciated. No organomegaly. No CVA tenderness bilaterally. MUSCULOSKELETAL: No muscle atrophy, erythema, or edema noted. Strength 5/5 throughout. NEURO: Patient was alert and oriented to person place and time. Normal sensation to touch. No focal neurological deficits. Medical Decision & Procedures Laboratory Results 12/29/16 13:55 Red Blood Count 4.65, Mean Corpuscular Volume 89.0, Mean Corpuscular Hemoglobin 30.5, Mean Corpuscular Hemoglobin Concent 34.3, Mean Platelet Volume 12.5, Neutrophils (%) (Auto) 88.2, Lymphocytes (%) (Auto) 5.1, Monocytes (%) (Auto) 5.8, Eosinophils (%) (Auto) 0.4, Basophils (%) (Auto) 0.2, Neutrophils # (Auto) 9.42, Lymphocytes # (Auto) 0.55, Monocytes # (Auto) 0.62, Eosinophils # (Auto) 0.04, Basophils # (Auto) 0.02 12/29/16 13:55 Test 12/29/16 13:55 12/29/16 16:45 White Blood Count 10.68 K/uL (4.8-10.8) Red Blood Count 4.65 M/uL (4.2-5.4) Hemoglobin 14.2 g/dL (12.0-16.0) Hematocrit 41.4 % (37-47) Mean Corpuscular Volume 89.0 fL (80-100) Mean Corpuscular Hemoglobin 30.5 pg (25-34) Mean Corpuscular Hemoglobin Concent 34.3 g/dl (32-36) Platelet Count 210 K/uL (130-400) Mean Platelet Volume 12.5 fL (7.4-10.4) Neutrophils (%) (Auto) 88.2 % Lymphocytes (%) (Auto) 5.1 % Monocytes (%) (Auto) 5.8 % Eosinophils (%) (Auto) 0.4 % Basophils (%) (Auto) 0.2 % Neutrophils # (Auto) 9.42 K/uL (1.4-6.5) Lymphocytes # (Auto) 0.55 K/uL (1.2-3.4) Monocytes # (Auto) 0.62 K/uL (0.11-0.59) Eosinophils # (Auto) 0.04 K/uL (0-0.5) Basophils # (Auto) 0.02 K/uL (0-0.2) RDW Standard Deviation 43.0 fL (36.4-46.3) RDW Coefficient of Variation 13.4 % (11.5-14.5) Immature Granulocyte % (Auto) 0.3 % Immature Granulocyte # (Auto) 0.03 K/uL (0.00-0.02) Anion Gap 10.0 mmol/L (3-11) Est Creatinine Clear Calc Drug Dose 118.2 ml/min Estimated GFR () 101.0 Estimated GFR (Non- 87.2 BUN/Creatinine Ratio 16.8 (10-20) Lactic Acid Level 1.8 mmol/L (0.4-2.0) Calcium Level 8.8 mg/dl (8.5-10.1) Total Bilirubin 0.5 mg/dl (0.2-1) Aspartate Amino Transf (AST/SGOT) 17 U/L (15-37) Alanine Aminotransferase (ALT/SGPT) 31 U/L (12-78) Alkaline Phosphatase 122 U/L (45-117) Total Protein 7.3 gm/dl (6.4-8.2) Albumin 3.9 gm/dl (3.4-5.0) Globulin 3.4 gm/dl (2.5-4.0) Albumin/Globulin Ratio 1.1 (0.9-2) Lipase 125 U/L (73-393) Urine Color YELLOW Urine Appearance CLEAR (CLEAR) Urine pH 5.5 (4.5-7.5) Urine Specific [place] 1.024 (1.000-1.030) Urine Protein NEG (NEG) Urine Glucose (UA) NEG (NEG) Urine Ketones NEG (NEG) Urine Occult Blood NEG (NEG) Urine Nitrite NEG (NEG) Urine Bilirubin NEG (NEG) Urine Urobilinogen NEG (NEG) Urine Leukocyte Esterase TRACE (NEG) Urine WBC (Auto) 1-5 /hpf (0-5) Urine RBC (Auto) 0-4 /hpf (0-4) Urine Hyaline Casts (Auto) 1-5 /lpf (0-5) Urine Epithelial Cells (Auto) 20-30 /lpf (0-5) Urine Bacteria (Auto) NEG (NEG) Urine Test NEG (NEG) Date/Time Source Procedure Growth Status 12/29/16 18:15 Stool C.difficile Toxin B Gene (PCR) - Final No C. difficile toxin B gene detected Complete Medications Administered Medications (Trade) Dose Ordered Sig/Eva Route Start Time Stop Time Status Last Admin Dose Admin Sodium Chloride 1,000 ml @ 999 mls/hr Q1H1M ONCE IV 12/29/16 13:15 12/29/16 14:15 DC 12/29/16 14:14 999 MLS/HR Ondansetron HCl (Zofran Inj) 4 mg NOW STAT IV 12/29/16 13:10 12/29/16 13:13 DC 12/29/16 14:13 4 MG Morphine Sulfate (MoRPHine SULFATE INJ) 4 mg ONE ONCE IV 12/29/16 13:45 12/29/16 13:46 DC 12/29/16 14:14 4 MG Morphine Sulfate (MoRPHine SULFATE INJ) 4 mg ONE ONCE IV 12/29/16 15:30 12/29/16 15:31 DC 12/29/16 16:42 4 MG Ondansetron HCl (Zofran Inj) 4 mg NOW STAT IV 12/29/16 17:04 12/29/16 17:06 DC 12/29/16 17:35 4 MG Acetaminophen (Tylenol Tab) 1,000 mg NOW STAT PO 12/29/16 18:53 12/29/16 18:54 DC 12/29/16 19:11 1,000 MG Sodium Chloride 500 ml @ 999 mls/hr Q31M STAT IV 12/29/16 18:53 12/29/16 19:23 DC 12/29/16 18:53 999 MLS/HR Ibuprofen (Motrin Tab) 600 mg NOW STAT PO 12/29/16 20:07 12/29/16 20:08 DC 12/29/16 20:16 600 MG ED Course Patient was seen and examined Vital signs including blood pressure were reviewed medications list was verified with patient Labs were obtained, and a saline lock was established The patient was hydrated with 2 L of normal saline. She was given Zofran 4 g IV for nausea. She was also given morphine 4 mg IV for pain. The patient was reassessed multiple times during her emergency department stay. She did require additional doses of Zofran and morphine. CT of the abdomen and pelvis were performed and reviewed. The patient was still complaining of nausea and diarrhea. She was given an additional 500 mL of normal saline. She was also given 1 dose of Tylenol 1 g by mouth and ibuprofen 600 mg by mouth Upon reassessment, the patient was still tachycardic and symptomatic. At this time, the [facility] hospitalist service was contacted. They agreed to observe patient overnight. Medical Decision DIFFERENTIAL DIAGNOSIS: Gastroenteritis, Hepatitis, cholecystitis, cholangitis, biliary colic, pancreatitis, appendicitis, inguinal hernia, nephrolithiasis, inflammatory bowel disease, mesenteric adenitis, peptic ulcer disease, GERD, gastritis, pancreatitis,, bowel obstruction, splenic infarct, diverticulitis, mesenteric ischemia, metabolic, peritonitis, among others. This patient is a 26-year-old female that presented to the emergency department complaining of weeks of abdominal pain in addition to nausea, vomiting and diarrhea that started this morning. She was febrile and tachycardic. This prompted me to perform a CT scan of her abdomen and pelvis. The risks of radiation exposure were discussed with the patient. She agreed to proceed. No acute infectious abnormality was noted on the CT of the abdomen and pelvis. She does have a ovarian cyst on the left that could be contributing to her pain. She likely has a viral gastroenteritis in addition to the chronic cyst. Unfortunately, I was unable to adequately control the patient's symptoms; therefore, she was admitted to the hospital service for further evaluation and treatment. Impression Primary Impression: Vomiting and diarrhea Additional Impression: Abdominal pain Departure Information Referrals Jaz Lopez D.O. (PCP) Patient Instructions My [facility] Health Problem Qualifiers
[2016-12-29] MEDS ORDERED: MoRPHine SULFATE 4 MG/ML 1 ML CARP\\VIAL IV ONE ×2 (13:45→15:30)
[2016-12-29 14:34] LABS: BASO % 0.2 %; BASO ABS # 0.02 K/uL (0-0.2); COMPLETE YES; EOS % 0.4 %; HEMATOCRIT 41.4 % (37-47); IG% 0.3 %; LYMPH % 5.1 %; LYMPH ABS # 0.55 K/uL (1.2-3.4); MEAN CORPUSCULAR HEMOGLOBIN 30.5 pg (25-34); MEAN CORPUSCULAR HGB CONC 34.3 g/dl (32-36); MEAN PLATELET VOLUME 12.5 fL (7.4-10.4); MONO % 5.8 %; NEUT % 88.2 %; PLATELET COUNT 210 K/uL (130-400); RED BLOOD COUNT 4.65 M/uL (4.2-5.4); WHITE BLOOD COUNT 10.68 K/uL (4.8-10.8)
[2016-12-29 14:52] LABS: BUN/CREATININE RATIO 16.8 (10-20); CALCIUM 8.8 mg/dl (8.5-10.1); CREATININE 0.92 mg/dl (0.60-1.20); POTASSIUM 3.6 mmol/L (3.5-5.1)
[2016-12-29 14:55] LABS: ALB/GLOB RATIO 1.1 (0.9-2)
[2016-12-29] MEDS ORDERED: OPTIRAY 320 IV PRN (15:30)
[2016-12-29 17:05] LABS: URINE APPEARANCE CLEAR (CLEAR); URINE BILIRUBIN NEG (NEG); URINE COLOR YELLOW; URINE EPITHELIAL CELL AUTO 20-30 /lpf (0-5); URINE NITRITE NEG (NEG); URINE PH 5.5 (4.5-7.5); URINE SPECIFIC GRAVITY 1.024 (1.000-1.030); UROBILINOGEN NEG (NEG)
[2016-12-29 17:06] LABS: MANUAL MICROSCOPIC REQUIRED? NO; REVIEW REQ? NO
--- NOTE | 2016-12-29 18:20 | DIAGNOSTIC IMAGING REPORT ---
CT OF THE ABDOMEN AND PELVIS WITH CONTRAST CLINICAL HISTORY: Left lower quadrant pain, fever, nausea, vomiting and diarrhea. COMPARISON STUDY: CT of the abdomen and pelvis December 20, 2016. TECHNIQUE: Following IV administration of 116 mL of Optiray-320, axial images of the abdomen and pelvis were obtained from the lung bases to the proximal femurs. Images were reviewed in the axial, sagittal, and coronal planes. IV contrast was administered without complication. Oral contrast was administered. CT DOSE: 1445.04 mGy.cm FINDINGS: There is suspected fatty infiltration of the liver. The spleen, adrenal glands, kidneys and pancreas are normal. There is no hydronephrosis. There is no perinephric infiltration. No peripancreatic or pericholecystic infiltration is present. The caliber and wall thickness of small and large bowel are normal. There is no free air, pneumatosis or portal venous gas. There is no lymphadenopathy. A 2.8 cm water attenuation left adnexal lesion is present. Skeletal structures are unremarkable. There is a small fat-containing umbilical hernia. The appendix is normal. IMPRESSION: 1. No acute process within the abdomen or pelvis. 2. 2.8 cm cyst vs. dominant follicle within the left ovary. Electronically signed by: Bassem Collado M.D. 12/29/2016 6:19 PM Dictated Date/Time: 12/29/2016 6:13 PM
[2016-12-29] MEDS ORDERED: SODIUM CHLORIDE 0.9% 500ML 500 ML IV STA (18:53)
[2016-12-29] MEDS ORDERED: ACETAMINOPHEN 500 MG TAB PO STA (18:53)
[2016-12-29] MEDS ORDERED: IBUPROFEN 600 MG TAB PO STA (20:07)
[2016-12-29] MEDS ORDERED: BUPIVACAINE 0.5 % 5 MG/1 ML MPF 30ML VIAL INFIL ONE (21:45)
[2016-12-29] MEDS ORDERED: XYLOCAINE 1%/SOD BICARB 20 ML VIAL INFIL ONE (21:45)
--- NOTE | 2016-12-29 23:48 | History and Physical ---
History & Physical Date & Time of Service: Dec 29, 2016 at 23:48 Chief Complaint: Diarrhea, Vomiting, Sore Primary Care Physician: Jaz Lopez D.O. History of Present Illness Source: patient 26-year-old female with past medical history of anxiety/depression presents to the ER with complaints of vomiting and diarrhea which started this morning. She has a chronic history of nausea and lower abdominal pain for the last few weeks but developed vomiting and diarrhea today. She states that she had several episodes of watery diarrhea associated with abdominal pain. Also complains of fevers with chills. Denies any sick contacts, recent travel, urinary symptoms like dysuria or hematuria, vaginal discharge, recent antibiotic use. Denies any bright red bleeding per rectum or melena The patient stated that she had eaten at a [employer] restaurant yesterday. Past Medical/Surgical History Medical Problems: (1) Abdominal cramping Status: Resolved (2) Abdominal pain Status: Resolved (3) Ankle fracture Status: Resolved (4) Asthma Status: Chronic (5) Asthma Status: Resolved (6) bent tailbone Status: Chronic (7) Bronchitis Status: Resolved (8) Bronchitis Status: Resolved (9) Bronchitis Status: Resolved (10) Concussion Status: Resolved (11) Costochondral pain Status: Resolved (12) Dehydration Status: Resolved (13) Emphysema lung Status: Resolved (14) Fever Status: Resolved (15) Hand laceration Status: Resolved (16) Headache Status: Resolved (17) Injury, nerve, sciatic Status: Chronic (18) LABOR Status: Resolved (19) Left hip pain Status: Resolved (20) Low back pain Status: Resolved (21) Nausea vomiting and diarrhea Status: Resolved (22) Nausea vomiting and diarrhea Status: Resolved (23) Neck pain Status: Resolved (24) Pharyngitis Status: Resolved (25) labor Status: Resolved (26) Sinusitis Status: Resolved (27) Spasm of back muscles Status: Resolved (28) Ulcer Status: Resolved (29) Vomiting and diarrhea Status: Resolved Surgical Problems: (1) History of tonsillectomy Status: Resolved Family History Cancer Diabetes mellitus FH: kidney disease Gallbladder disease Heart disease Hypertension Social History Smoking Status: Current Every Day Smoker Marital Status: single Housing status: lives with roommate Occupational Status: employed Immunizations History of Influenza Vaccine: Unknown History of Tetanus Vaccine?: UTD Multi-Drug Resistant Organisms History of MDRO: No Allergies Coded Allergies: Fish Allergy (Verified Allergy, Unknown, ANAPHYLAXIS, 11/25/16) allergic to all fish and seafood Shellfish Allergy (Verified Allergy, Unknown, ANAPHYLAXIS, 11/25/16) allergic to all fish and seafood Home Medications Scheduled Bupropion (Wellbutrin Sr), 100 MG PO QAM Escitalopram Oxalate (Escitalopram Oxalate), 20 MG PO QAM Scheduled PRN Acetaminophen/Codeine (Tylenol W/Codeine #3), 1 TAB PO Q4 PRN for Pain Albuterol Hfa (Ventolin Hfa), 2-4 PUFFS INH Q6H PRN for SOB/Wheezing Fluticasone Propionate (Nasal) (Flonase Allergy Relief), 2 SPRAYS ASHA DAILY PRN for Nasal Congestion Hydroxyzine Pamoate (Vistaril), 50 MG PO HS PRN for Anxiety Ondansetron Odt (Zofran Odt), 8 MG SL Q6H PRN for Nausea Oxycodone HCl (Oxycodone HCl), 5 MG PO Q6 PRN for Pain Review of Systems Constitutional: + fever, + chills, + sweats Eyes: No worsening of vision Respiratory: No cough, No sputum, No shortness of breath Cardiovascular: No chest pain, No palpitations Abdomen: + pain (sharp stabbing, diffuse abdominal pain), + nausea, + vomiting , + diarrhea, No GI bleeding Musculoskeletal: No joint pain Genitourinary - Female: No dysuria, No urinary frequency, No urinary urgency Neurologic: No memory loss Psychiatric: No depression symptoms Endocrine: No fatigue Integumentary: No rash Physical Exam Vital Signs Date Time Temp Pulse Resp B/P (MAP) Pulse Ox O2 Delivery O2 Flow Rate FiO2 12/29/16 23:10 93 18 118/61 97 Room Air 12/29/16 21:39 37.2 97 16 133/81 96 Room Air 12/29/16 20:52 37.5 12/29/16 20:02 39.0 12/29/16 19:47 121 22 121/61 93 Room Air 12/29/16 19:13 120 16 129/62 93 Room Air 12/29/16 17:36 115 18 109/61 95 Room Air 12/29/16 16:46 114 20 96/47 95 Room Air 12/29/16 14:50 99 16 110/60 95 Room Air 12/29/16 12:56 37.9 137 20 109/76 96 General Appearance: WD/WN, no apparent distress Eyes: normal inspection ENT: normal ENT inspection Neck: supple Respiratory/Chest: chest non-tender, lungs clear, normal breath sounds, no respiratory distress, no accessory muscle use Cardiovascular: + tachycardia Abdomen/GI: normal bowel sounds, soft, + tenderness (diffusely) Extremities/Musculoskelatal: no calf tenderness, no pedal edema Neurologic/Psych: alert, normal mood/affect, oriented x 3 Diagnostics Laboratory Results Results Past 24 Hours Test 12/29/16 13:55 12/29/16 16:45 Range/Units White Blood Count 10.68 4.8-10.8 K/uL Red Blood Count 4.65 4.2-5.4 M/uL Hemoglobin 14.2 12.0-16.0 g/dL Hematocrit 41.4 37-47 % Mean Corpuscular Volume 89.0 80-100 fL Mean Corpuscular Hemoglobin 30.5 25-34 pg Mean Corpuscular Hemoglobin Concent 34.3 32-36 g/dl Platelet Count 210 130-400 K/uL Mean Platelet Volume 12.5 7.4-10.4 fL Neutrophils (%) (Auto) 88.2 % Lymphocytes (%) (Auto) 5.1 % Monocytes (%) (Auto) 5.8 % Eosinophils (%) (Auto) 0.4 % Basophils (%) (Auto) 0.2 % Neutrophils # (Auto) 9.42 1.4-6.5 K/uL Lymphocytes # (Auto) 0.55 1.2-3.4 K/uL Monocytes # (Auto) 0.62 0.11-0.59 K/uL Eosinophils # (Auto) 0.04 0-0.5 K/uL Basophils # (Auto) 0.02 0-0.2 K/uL RDW Standard Deviation 43.0 36.4-46.3 fL RDW Coefficient of Variation 13.4 11.5-14.5 % Immature Granulocyte % (Auto) 0.3 % Immature Granulocyte # (Auto) 0.03 0.00-0.02 K/uL Sodium Level 137 136-145 mmol/L Potassium Level 3.6 3.5-5.1 mmol/L Chloride Level 107 98-107 mmol/L Carbon Dioxide Level 20 21-32 mmol/L Anion Gap 10.0 3-11 mmol/L Blood Urea Nitrogen 16 7-18 mg/dl Creatinine 0.92 0.60-1.20 mg/dl Est Creatinine Clear Calc Drug Dose 118.2 ml/min Estimated GFR () 101.0 Estimated GFR (Non- 87.2 BUN/Creatinine Ratio 16.8 10-20 Random Glucose 90 70-99 mg/dl Lactic Acid Level 1.8 0.4-2.0 mmol/L Calcium Level 8.8 8.5-10.1 mg/dl Total Bilirubin 0.5 0.2-1 mg/dl Aspartate Amino Transf (AST/SGOT) 17 15-37 U/L Alanine Aminotransferase (ALT/SGPT) 31 12-78 U/L Alkaline Phosphatase 122 45-117 U/L Total Protein 7.3 6.4-8.2 gm/dl Albumin 3.9 3.4-5.0 gm/dl Globulin 3.4 2.5-4.0 gm/dl Albumin/Globulin Ratio 1.1 0.9-2 Lipase 125 73-393 U/L Urine Color YELLOW Urine Appearance CLEAR CLEAR Urine pH 5.5 4.5-7.5 Urine Specific [place] 1.024 1.000-1.030 Urine Protein NEG NEG Urine Glucose (UA) NEG NEG Urine Ketones NEG NEG Urine Occult Blood NEG NEG Urine Nitrite NEG NEG Urine Bilirubin NEG NEG Urine Urobilinogen NEG NEG Urine Leukocyte Esterase TRACE NEG Urine WBC (Auto) 1-5 0-5 /hpf Urine RBC (Auto) 0-4 0-4 /hpf Urine Hyaline Casts (Auto) 1-5 0-5 /lpf Urine Epithelial Cells (Auto) 20-30 0-5 /lpf Urine Bacteria (Auto) NEG NEG Urine Test NEG NEG Microbiology Results 12/29/16 Blood Culture, Received Pending 12/29/16 Blood Culture, Received Pending 12/29/16 C.difficile Toxin B Gene (PCR) - Final, Complete No C. difficile toxin B gene detected 12/29/16 WBC Smear, Received Pending 12/29/16 Shiga Toxin Test, Received Pending 12/29/16 Stool Culture, Received Pending Diagnostic Radiology CT OF THE ABDOMEN AND PELVIS WITH CONTRAST CLINICAL HISTORY: Left lower quadrant pain, fever, nausea, vomiting and diarrhea. COMPARISON STUDY: CT of the abdomen and pelvis December 20, 2016. TECHNIQUE: Following IV administration of 116 mL of Optiray-320, axial images of the abdomen and pelvis were obtained from the lung bases to the proximal femurs. Images were reviewed in the axial, sagittal, and coronal planes. IV contrast was administered without complication. Oral contrast was administered. CT DOSE: 1445.04 mGy.cm FINDINGS: There is suspected fatty infiltration of the liver. The spleen, adrenal glands, kidneys and pancreas are normal. There is no hydronephrosis. There is no perinephric infiltration. No peripancreatic or pericholecystic infiltration is present. The caliber and wall thickness of small and large bowel are normal. There is no free air, pneumatosis or portal venous gas. There is no lymphadenopathy. A 2.8 cm water attenuation left adnexal lesion is present. Skeletal structures are unremarkable. There is a small fat-containing umbilical hernia. The appendix is normal. IMPRESSION: 1. No acute process within the abdomen or pelvis. 2. 2.8 cm cyst vs. dominant follicle within the left ovary. Electronically signed by: Bassem Collado M.D. 12/29/2016 6:19 PM Dictated Date/Time: 12/29/2016 6:13 PM Impression Assessment and Plan 26-year-old female with past medical history of anxiety/depression presents to the ER with complaints of vomiting and diarrhea which started this morning. She has a chronic history of nausea and lower abdominal pain for the last few weeks but developed vomiting and diarrhea today. Nausea, vomiting and diarrhea with abdominal pain - Likely secondary to viral gastroenteritis - C. difficile negative - Shigella, salmonella, stool culture pending - CT abdomen and pelvis:1. No acute process within the abdomen or pelvis. 2. 2.8 cm cyst vs. dominant follicle within the left ovary. - Continue IV fluids - Dicyclomine added - Tylenol/Motrin for pain control Anxiety/depression - Continue Wellbutrin and escitalopram Asthma: - Albuterol as needed Full code DVT prophylaxis: SCDs Disposition: Admitted to [facility] Attending Addendum: I physically seen and examined this patient, have supervised the medical residents activities, and agree with the H&P as noted above with the following exceptions: NONE The patient is awake, well-developed and adequately nourished, alert and oriented 3, normocephalic and atraumatic, lying in bed and in no acute distress. HEENT--PERRL, EOMI, mucous membranes and oropharynx dry. Neck--supple, no JVD or bruits, thyroid normal, trachea midline, no adenopathy. Heart--normal S1 and S2, no extra beats, no murmurs, rubs or gallops. Lungs--clear bilaterally with good air movement, no respiratory distress, no accessory muscle use. Abdomen--normal bowel sounds and soft, nontender and nondistended, no hernias or masses, no organomegaly. Extremities--no cyanosis, clubbing or edema. There are good distal pulses b/l. Dermatologic--normal skin turgor, normal color, warm and dry, no abnormal lymph nodes, no rash. Neurologic--cranial nerves II through XII grossly intact, motor and sensory examination normal. Rheumatologic--normal range of motion, nontender, muscles and joints. Psychiatric--normal affect. Assessment and Plan: 1. Intractable nausea, vomiting, diarrhea and dehydration with abdominal pain-- the patient be admitted to the medical surgical floor with nothing by mouth status. CT abdomen and pelvis with no acute findings other than unrelated to 2.8 cm left ovarian cyst. Stool culture, O&P pending. Likely viral etiology if testing negative. Continue normal saline with KCl 20 mEq at 200 ML's per hour. Dicyclomine when necessary for pain control, along with Tylenol when necessary Level of Care Med/Surg Resuscitation Status FULL RESUSCITATION VTE Prophylaxis VTE Risk Assessment Done? Y/N: Yes Risk Level: Moderate Given or contraindicated: SCD's Resident Tracking Resident Involvement: Resident Care Provided Care Provided: Adult Hospital Medicine
[2016-12-30] MEDS ORDERED: ALUMINUM/MAGNESIUM/SIMETH (MAALOX MAX) 30 ML UDC PO PRN
[2016-12-30] MEDS ORDERED: ACETAMINOPHEN 325 MG TAB PO PRN
[2016-12-30] MEDS ORDERED: ONDANSETRON INJ 2 MG/ML 2 ML VIAL IV PRN
[2016-12-30 00:45] VITALS: BP 116/72; PULSE 85; TEMP 36.8; O2SAT 95; Ht 165.1 cm; Wt 113.0 kg
[2016-12-30] MEDS: SODIUM CHLORIDE 0.9% 1000ML 1,000 ML IV SCH ×4 (01:08→20:39)
[2016-12-30] MEDS ORDERED: NURSING VERBAL MED ORDER ONE (02:00)
[2016-12-30] MEDS ORDERED: NICOTINE 21 MG/24 HR TDSY TD STA (02:11)
[2016-12-30] MEDS ORDERED: DICYCLOMINE HCL 20 MG TAB PO STA (02:11)
[2016-12-30 05:31] LABS: HEMATOCRIT 36.6 % (37-47); MEAN CELL VOLUME 89.1 fL (80-100); MEAN CORPUSCULAR HGB CONC 32.5 g/dl (32-36); MEAN PLATELET VOLUME 11.2 fL (7.4-10.4); PLATELET COUNT 178 K/uL (130-400); RED BLOOD COUNT 4.11 M/uL (4.2-5.4); WHITE BLOOD COUNT 4.87 K/uL (4.8-10.8)
[2016-12-30 05:49] LABS: BUN/CREATININE RATIO 18.3 (10-20); CALCIUM 7.6 mg/dl (8.5-10.1); CREATININE 0.66 mg/dl (0.60-1.20); POTASSIUM 3.4 mmol/L (3.5-5.1)
[2016-12-30] MEDS ORDERED: FLUTICASONE PROPIONATE NA SPR 16 GM BTL NAE PRN (06:45)
[2016-12-30] MEDS ORDERED: ALBUTEROL HFA 8 GM INHALER INH PRN (06:45)
[2016-12-30 06:55] VITALS: BP 103/68; PULSE 82; TEMP 36.8; O2SAT 97
[2016-12-30] MEDS: DICYCLOMINE HCL 20 MG TAB PO SCH ×4 (08:20→19:38)
[2016-12-30] MEDS: BuPROPion SR 100 MG TABCR PO SCH (08:20)
[2016-12-30] MEDS: ESCITALOPRAM OXALATE 20 MG TAB PO SCH (08:20)
[2016-12-30] MEDS: IBUPROFEN 600 MG TAB PO PRN ×2 (08:24→22:02)
--- NOTE | 2016-12-30 09:01 | Family Medicine Progress Note ---
Progress Note Date of Service Dec 30, 2016. Subjective Pt evaluation today including: conversation w/ patient, conversation w/ family , physical exam, chart review, lab review, review of studies, review of inpatient medication list Pain: Reports pain across abdomen at level of 9.5/10 PO Intake: Tried PO breakfast, resulted in nausea Voiding: no voiding problems Patient is reporting severe abdominal pain at a level of 9.5/10. She has not had any more episodes of nausea or vomiting since being admitted. Reports loose stool, of a yellow color. Also reporting fecal incontinence Constitutional: + fever Abdomen: + pain, + nausea, + diarrhea, + problem reported (fecal incontinence) Female : + dysuria All Other Systems: Reviewed and Negative Medications Current Inpatient Medications Medications (Trade) Dose Ordered Sig/Eva Route Start Time Stop Time Status Last Admin Dose Admin Ioversol (Optiray 320) 125 ml UD PRN IV 12/29/16 15:30 01/02/17 15:29 Acetaminophen (Tylenol Tab) 650 mg Q4H PRN PO 12/30/16 00:00 01/29/17 00:00 Al Hydrox/Mg Hydrox/Simethicone (Maalox Max Susp) 15 ml Q4H PRN PO 12/30/16 00:00 01/29/17 00:00 Ondansetron HCl (Zofran Inj) 4 mg Q6H PRN IV 12/30/16 00:00 01/29/17 00:00 Sodium Chloride 1,000 ml @ 150 mls/hr Q6H40M IV 12/30/16 01:00 01/29/17 00:59 12/30/16 08:20 150 MLS/HR Dicyclomine HCl (Bentyl Tab) 20 mg QID PO 12/30/16 08:00 01/29/17 08:59 12/30/16 08:20 20 MG Miscellaneous (Remove Nicoderm Patch) 1 ea TODAY@2100 N/A 12/30/16 21:00 12/30/16 21:01 Ibuprofen (Motrin Tab) 600 mg Q6H PRN PO 12/30/16 02:15 01/29/17 02:14 12/30/16 08:24 600 MG Albuterol (Ventolin Hfa Inhaler) 2 puffs Q6H PRN INH 12/30/16 06:45 01/29/17 06:44 Bupropion HCl (Wellbutrin-Sr Tab) 100 mg QAM PO 12/30/16 08:00 01/29/17 07:59 12/30/16 08:20 100 MG Escitalopram Oxalate (Lexapro Tab) 20 mg QAM PO 12/30/16 08:00 01/29/17 07:59 12/30/16 08:20 20 MG Fluticasone Propionate (Flonase Nasal [place]) 2 sprays DAILY PRN ASHA 12/30/16 06:45 01/29/17 06:44 Objective Physical Exam General Appearance: + mild distress Eyes: normal inspection, PERRL, EOMI, sclerae normal ENT: hearing grossly normal, pharynx normal Neck: supple, no JVD, trachea midline Respiratory/Chest: chest non-tender, lungs clear, normal breath sounds, no respiratory distress, no accessory muscle use Cardiovascular: regular rate, rhythm, no edema, no murmur Abdomen: normal bowel sounds, soft, no organomegaly, no pulsatile mass, + rebound, + tenderness Extremities: normal range of motion, non-tender, normal inspection, no pedal edema Neurologic/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, no motor/sensory deficits, alert, normal mood/affect, oriented x 3 Skin: normal color, no rash Laboratory Results 12/30/16 05:14 12/30/16 05:14 Test 12/29/16 13:55 12/29/16 16:45 12/30/16 05:14 Immature Granulocyte % (Auto) 0.3 % White Blood Count 10.68 K/uL (4.8-10.8) Red Blood Count 4.65 M/uL (4.2-5.4) 4.11 M/uL (4.2-5.4) Hemoglobin 14.2 g/dL (12.0-16.0) Hematocrit 41.4 % (37-47) Mean Corpuscular Volume 89.0 fL (80-100) 89.1 fL (80-100) Mean Corpuscular Hemoglobin 30.5 pg (25-34) 29.0 pg (25-34) Mean Corpuscular Hemoglobin Concent 34.3 g/dl (32-36) 32.5 g/dl (32-36) Platelet Count 210 K/uL (130-400) Mean Platelet Volume 12.5 fL (7.4-10.4) 11.2 fL (7.4-10.4) Neutrophils (%) (Auto) 88.2 % Lymphocytes (%) (Auto) 5.1 % Monocytes (%) (Auto) 5.8 % Eosinophils (%) (Auto) 0.4 % Basophils (%) (Auto) 0.2 % Neutrophils # (Auto) 9.42 K/uL (1.4-6.5) Lymphocytes # (Auto) 0.55 K/uL (1.2-3.4) Monocytes # (Auto) 0.62 K/uL (0.11-0.59) Eosinophils # (Auto) 0.04 K/uL (0-0.5) Basophils # (Auto) 0.02 K/uL (0-0.2) Immature Granulocyte # (Auto) 0.03 K/uL (0.00-0.02) Lactic Acid Level 1.8 mmol/L (0.4-2.0) Total Bilirubin 0.5 mg/dl (0.2-1) Aspartate Amino Transf (AST/SGOT) 17 U/L (15-37) Alanine Aminotransferase (ALT/SGPT) 31 U/L (12-78) Alkaline Phosphatase 122 U/L (45-117) Total Protein 7.3 gm/dl (6.4-8.2) Albumin 3.9 gm/dl (3.4-5.0) Globulin 3.4 gm/dl (2.5-4.0) Albumin/Globulin Ratio 1.1 (0.9-2) Lipase 125 U/L (73-393) Urine Color YELLOW Urine Appearance CLEAR (CLEAR) Urine pH 5.5 (4.5-7.5) Urine Specific [place] 1.024 (1.000-1.030) Urine Protein NEG (NEG) Urine Glucose (UA) NEG (NEG) Urine Ketones NEG (NEG) Urine Occult Blood NEG (NEG) Urine Nitrite NEG (NEG) Urine Bilirubin NEG (NEG) Urine Urobilinogen NEG (NEG) Urine Leukocyte Esterase TRACE (NEG) Urine WBC (Auto) 1-5 /hpf (0-5) Urine RBC (Auto) 0-4 /hpf (0-4) Urine Hyaline Casts (Auto) 1-5 /lpf (0-5) Urine Epithelial Cells (Auto) 20-30 /lpf (0-5) Urine Bacteria (Auto) NEG (NEG) Urine Test NEG (NEG) RDW Standard Deviation 43.8 fL (36.4-46.3) RDW Coefficient of Variation 13.4 % (11.5-14.5) Anion Gap 6.0 mmol/L (3-11) Est Creatinine Clear Calc Drug Dose 164.7 ml/min Estimated GFR () 143.3 Estimated GFR (Non- 123.6 BUN/Creatinine Ratio 18.3 (10-20) Calcium Level 7.6 mg/dl (8.5-10.1) Date/Time Source Procedure Growth Status 12/29/16 18:15 Stool C.difficile Toxin B Gene (PCR) - Final No C. difficile toxin B gene detected Complete Assessment and Plan 26-year-old female with past medical history of anxiety/depression presented to the ER with vomiting and diarrhea which started yesterday morning. She has a chronic history of nausea and lower abdominal pain for the last few weeks but developed vomiting and diarrhea today. Nausea, vomiting and diarrhea with abdominal pain - Likely secondary to viral gastroenteritis - C. difficile negative - Shigella, salmonella, stool culture pending - CT abdomen and pelvis:1. No acute process within the abdomen or pelvis. 2. 2.8 cm cyst vs. dominant follicle within the left ovary. - Patient admits she frequently gets pain from ovary/fibroid but this pain feels different, especially with the concomitant nausea/vomiting/diarrhea - Continue IV fluids - Dicyclomine given - Tylenol/Motrin for pain control; no relief - Patient requesting just one injection of morphine to help curb the abdominal pain - Did not report nausea this AM, but had not eaten yet; feeling + for nausea after eating Anxiety/depression - Continue Wellbutrin and escitalopram Asthma: - Albuterol as needed Full code VTE: SCDs, full mobilization Dispo: [facility] Resident Physician Supervision Note: I interviewed and examined the patient. Discussed with Dr. Holt and agree with findings and plan as documented in the note. Any exceptions or clarifications are listed here: None Documented By: Tico Lucio seen twice today - feeling better than at admit but still some loose stools and belly pain. later revisited - eating reasonably - toradol helping pain but still hurting enough to need it. not yet feeling up to going home. all other ROS otherwise negative except for as above vitals noted nad breathing unlabored no pallor or icterus. abd soft mild distention mild diffuse tenderness no guarding no rebound no masses nausea/vomiting/diarrhea - viral GE vs nonspecific food poisoning - either way getting better. continue supportive care hypokalemia - from diarrhea - PO intake dehydration - from diarrhea - improving, IVF Resident Tracking Resident Involvement: Resident Care Provided Care Provided: Adult Hospital Medicine
[2016-12-30] MEDS ORDERED: KETOROLAC TROMETHAMINE 30 MG/ML VIAL IV STA (09:59)
--- NOTE | 2016-12-30 11:02 | Medical Student: [facility] ---
Med Student Progress Note Date of Service Dec 30, 2016. Subjective Pt evaluation today including: conversation w/ patient Mrs. Mendez is a 26 year old female with a PMH significant for anxiety/ depression, concussion, bronchitis, asthma, ankle fracture, uterine fibroid, and 2.9 cm left ovarian cyst who presented on 12/29 for intractable vomiting and diarrhea. These symptoms began at 0630 on 12/29. On 12/29, she had about 14 loose bowel movements and denies any bloody stool. She also denies hematemesis. She has been having fevers and chills however. For lunch on 12/28, she ate [place] food with her mother and 3 year old daughter and she attributes the vomiting and diarrhea to possible food poisoning, although her mother and daughter never became ill. About 2 weeks ago, she developed diffuse lower abdominal pain which has since been worsening. She came to the ER on 12/20/2016 for left sided abdominal pain and CT ab/pelvis showed a 2.9 cm dominant left ovarian follicle. A couple days later, her abdominal pain worsened and she went to [facility] where an abdominal US was done that showed an unchanged ovarian cyst and uterine fibroid. Then on December 25, she returned to [facility] ER for the same diffuse lower abdominal pain . She was scheduled for gynecology appointment yesterday to further evaluate the fibroid and ovarian cyst, but cancelled the appointment due to coming to the hospital. She has not recent history of sick contacts, travel, vaginal symptoms, or antibiotic use. She denies chest pain or SOB, but is experiencing RODRIGEZ, diffuse lower abdominal pain, dysuria, and diaphoresis. She currently describes her abdominal pain as stabbing & gassy in nature. The pain continues to be located diffuse in her lower abdomen and more prominently in her left lower quadrant. So far today she has had 2 loose bowel movements, but no emesis. She is requesting IV morphine to control her abdominal pain because this is what she received 8 mg total of IV morphine in the ER. Obstetric & Gynecologic History: The patient has been once, possibly twice. At 18 years old, the patient was sexually active and experienced severe abdominal pain and vaginal bleeding which she attributed to a miscarriage, but the miscarriage was never medically confirmed. At 22, she vaginally delivered her daughter. Her course was complicated by preeclampsia and strep B infection. The patient recently stopped Depo-Provera in September after receiving the injections for 4 years. She thus has not had a period in 4 years. She is currently sexually active with her boyfriend and does experience dyspareunia. 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 She has a follow up appointment with Emma in May concerning her HPV. Review of Systems Constitutional: + sweats, No fever, No chills Eyes: No worsening of vision ENT: No hearing loss Respiratory: No cough, No sputum, No wheezing, No shortness of breath Cardiac: No chest pain, No edema, No palpitations Abdomen: + pain (diffuse lower abdominal, more prominent in LLQ ), + diarrhea, No nausea, No vomiting Musculoskeletal: No joint pain Female : + dysuria, No urinary frequency, No hematuria Skin: No rash Objective Vital Signs Date Time Temp Pulse Resp B/P (MAP) Pulse Ox O2 Delivery O2 Flow Rate FiO2 12/30/16 08:00 Room Air 12/30/16 06:55 36.8 82 18 103/68 (80) 97 Room Air 12/30/16 00:45 Room Air 12/30/16 00:45 36.8 85 18 116/72 95 Room Air 12/30/16 00:44 36.7 87 18 120/59 95 12/29/16 23:10 93 18 118/61 97 Room Air 12/29/16 21:39 37.2 97 16 133/81 96 Room Air 12/29/16 20:52 37.5 12/29/16 20:02 39.0 12/29/16 19:47 121 22 121/61 93 Room Air 12/29/16 19:13 120 16 129/62 93 Room Air 12/29/16 17:36 115 18 109/61 95 Room Air 12/29/16 16:46 114 20 96/47 95 Room Air 12/29/16 14:50 99 16 110/60 95 Room Air 12/29/16 12:56 37.9 137 20 109/[address] Abdomen/Pelvis 12/29/2016 CT OF THE ABDOMEN AND PELVIS WITH CONTRAST CLINICAL HISTORY: Left lower quadrant pain, fever, nausea, vomiting and diarrhea. COMPARISON STUDY: CT of the abdomen and pelvis December 20, 2016. TECHNIQUE: Following IV administration of 116 mL of Optiray-320, axial images of the abdomen and pelvis were obtained from the lung bases to the proximal femurs. Images were reviewed in the axial, sagittal, and coronal planes. IV contrast was administered without complication. Oral contrast was administered. CT DOSE: 1445.04 mGy.cm FINDINGS: There is suspected fatty infiltration of the liver. The spleen, adrenal glands, kidneys and pancreas are normal. There is no hydronephrosis. There is no perinephric infiltration. No peripancreatic or pericholecystic infiltration is present. The caliber and wall thickness of small and large bowel are normal. There is no free air, pneumatosis or portal venous gas. There is no lymphadenopathy. A 2.8 cm water attenuation left adnexal lesion is present. Skeletal structures are unremarkable. There is a small fat-containing umbilical hernia. The appendix is normal. IMPRESSION: 1. No acute process within the abdomen or pelvis. 2. 2.8 cm cyst vs. dominant follicle within the left ovary. Physical Exam General Appearance: WD/WN, no apparent distress Eyes: bilateral eyes normal inspection, bilateral eyes PERRL, bilateral eyes EOMI ENT: normal ENT inspection Neck: supple, no adenopathy, thyroid normal Respiratory/Chest: lungs clear, normal breath sounds, no respiratory distress Cardiovascular: regular rate, rhythm, no edema, no gallop, no JVD, no murmur Abdomen: normal bowel sounds, soft, no organomegaly, + tenderness (diffusely in the lower abdomen, more prominent in LLQ ), + pertinent finding (no guarding or rebound tenderness ) Extremities: normal inspection, no pedal edema, no calf tenderness Neurologic/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, no motor/sensory deficits Skin: normal color, warm/dry Lymphatic: no adenopathy Laboratory Results Last 24 Hours Test 12/29/16 13:55 12/29/16 16:45 12/30/16 05:14 White Blood Count 10.68 K/uL 4.87 K/uL Red Blood Count 4.65 M/uL 4.11 M/uL Hemoglobin 14.2 g/dL 11.9 g/dL Hematocrit 41.4 % 36.6 % Mean Corpuscular Volume 89.0 fL 89.1 fL Mean Corpuscular Hemoglobin 30.5 pg 29.0 pg Mean Corpuscular Hemoglobin Concent 34.3 g/dl 32.5 g/dl Platelet Count 210 K/uL 178 K/uL Mean Platelet Volume 12.5 fL 11.2 fL Neutrophils (%) (Auto) 88.2 % Lymphocytes (%) (Auto) 5.1 % Monocytes (%) (Auto) 5.8 % Eosinophils (%) (Auto) 0.4 % Basophils (%) (Auto) 0.2 % Neutrophils # (Auto) 9.42 K/uL Lymphocytes # (Auto) 0.55 K/uL Monocytes # (Auto) 0.62 K/uL Eosinophils # (Auto) 0.04 K/uL Basophils # (Auto) 0.02 K/uL RDW Standard Deviation 43.0 fL 43.8 fL RDW Coefficient of Variation 13.4 % 13.4 % Immature Granulocyte % (Auto) 0.3 % Immature Granulocyte # (Auto) 0.03 K/uL Sodium Level 137 mmol/L 141 mmol/L Potassium Level 3.6 mmol/L 3.4 mmol/L Chloride Level 107 mmol/L 109 mmol/L Carbon Dioxide Level 20 mmol/L 26 mmol/L Anion Gap 10.0 mmol/L 6.0 mmol/L Blood Urea Nitrogen 16 mg/dl 12 mg/dl Creatinine 0.92 mg/dl 0.66 mg/dl Est Creatinine Clear Calc Drug Dose 118.2 ml/min 164.7 ml/min Estimated GFR () 101.0 143.3 Estimated GFR (Non- 87.2 123.6 BUN/Creatinine Ratio 16.8 18.3 Random Glucose 90 mg/dl 89 mg/dl Lactic Acid Level 1.8 mmol/L Calcium Level 8.8 mg/dl 7.6 mg/dl Total Bilirubin 0.5 mg/dl Aspartate Amino Transf (AST/SGOT) 17 U/L Alanine Aminotransferase (ALT/SGPT) 31 U/L Alkaline Phosphatase 122 U/L Total Protein 7.3 gm/dl Albumin 3.9 gm/dl Globulin 3.4 gm/dl Albumin/Globulin Ratio 1.1 Lipase 125 U/L Urine Color YELLOW Urine Appearance CLEAR Urine pH 5.5 Urine Specific [place] 1.024 Urine Protein NEG Urine Glucose (UA) NEG Urine Ketones NEG Urine Occult Blood NEG Urine Nitrite NEG Urine Bilirubin NEG Urine Urobilinogen NEG Urine Leukocyte Esterase TRACE Urine WBC (Auto) 1-5 /hpf Urine RBC (Auto) 0-4 /hpf Urine Hyaline Casts (Auto) 1-5 /lpf Urine Epithelial Cells (Auto) 20-30 /lpf Urine Bacteria (Auto) NEG Urine Test NEG Assessment and Plan Assessment and Plan: Assessment: Mrs. Mendez is a 26 year old female with a PMH significant for anxiety/depression, concussion, bronchitis, asthma, ankle fracture, uterine fibroid, and 2.9 cm left ovarian cyst who presented on 12/29 for intractable vomiting and diarrhea of 1 day duration. Her history is also significant for 2 weeks of worsening lower abdominal pain that is stabbing and gassy in nature. She recently ate [place] food for lunch the day before the intractable vomiting and diarrhea. She was also recently diagnosed with a uterine fibroid and left 2.8 cm ovarian cyst. On admission, the patient was febrile at 37.9 and her highest fever was 39. She was also tachycardic at 137. CO2 was low at 20 and Alk phos was elevated at 122. Abdominal/pelvic CT showed an unchanged 2.8 cm left ovarian cyst. It additionally showed fatty infiltration in her liver and an umbilical hernia. The imaging was negative for hydronephrosis, pneumoperitoneum, or pericholecystic infiltration. Today, vitals are WNL and Hgb is downtrending to 11.9 today. Lactic acid is normal at 1.8. It is plausible the diarrhea and vomiting are due to viral gastroenteritis, but coupled with the clinical picture of a 2 week history of diffuse abdominal pain warrants further investigation. It is also unlikely that a uterine fibroid and unruptured ovarian cyst would cause abdominal pain of this degree. Plan: Diarrhea/Vomiting/Diffuse lower abdominal pain - etiology still unclear, possibly viral gastroenteritis -C dif negative -Shigella, Salmonella and stool culture pending -abd/pelvis CT does not indicate bowel obstruction, signs of peritonitis, or signs of pneumatosis -continue IVF 150 cc/hr -continue Dicyclomine 20 mg QID -continue Tylenol 650 mg q4hr -continue Motrin 600 mg q6hr -continue Maalox 15 mL q4hr -continue Toradol 30 mg q6hr Uterine fibroid/left ovarian cyst - most likely not causing severe abdominal pain/vomiting/diarrhea -Had f/u appointment with [facility] [employer] on 12/29, reschedule appointment Asthma -continue albuterol 2 puffs q6hr PRN Anxiety/Depression -continue buproprion 100 mg PO daily -continue escitalopram 20 mg PO daily Smoking history -Nicoderm patch PRN Nausea -IV Zofran 4 mg q6hr
[2016-12-30 14:49] LABS: URINE APPEARANCE CLOUDY (CLEAR); URINE BILIRUBIN NEG (NEG); URINE COLOR YELLOW; URINE EPITHELIAL CELL AUTO >30 /lpf (0-5); URINE NITRITE NEG (NEG); URINE PH 6.5 (4.5-7.5); URINE SPECIFIC GRAVITY 1.012 (1.000-1.030); UROBILINOGEN NEG (NEG)
[2016-12-30 15:04] LABS: MANUAL MICROSCOPIC REQUIRED? NO; REVIEW REQ? NO
[2016-12-30 15:28] VITALS: BP 104/64; PULSE 80; TEMP 36.7; O2SAT 97
[2016-12-30] MEDS ORDERED: KETOROLAC TROMETHAMINE 30 MG/ML VIAL IV ONE (17:01)
[2016-12-30] MEDS: KETOROLAC TROMETHAMINE 30 MG/ML VIAL IV PRN (17:05)
[2016-12-30 22:54] VITALS: BP 118/74; PULSE 64; TEMP 36.8; O2SAT 95
[2016-12-31] MEDS: KETOROLAC TROMETHAMINE 30 MG/ML VIAL IV PRN (00:39)
[2016-12-31] MEDS: SODIUM CHLORIDE 0.9% 1000ML 1,000 ML IV SCH ×2 (03:11→11:50)
[2016-12-31 06:52] LABS: BASO % 0.2 %; BASO ABS # 0.01 K/uL (0-0.2); COMPLETE YES; EOS % 2.9 %; HEMATOCRIT 32.9 % (37-47); IG% 0.2 %; LYMPH ABS # 1.63 K/uL (1.2-3.4); MEAN CELL VOLUME 90.6 fL (80-100); MEAN CORPUSCULAR HGB CONC 33.1 g/dl (32-36); MEAN PLATELET VOLUME 11.6 fL (7.4-10.4); MONO % 8.2 %; NEUT % 51.5 %; PLATELET COUNT 155 K/uL (130-400); RED BLOOD COUNT 3.63 M/uL (4.2-5.4); WHITE BLOOD COUNT 4.41 K/uL (4.8-10.8)
[2016-12-31 07:21] VITALS: BP 102/63; PULSE 61; TEMP 36.8; O2SAT 96
[2016-12-31 07:27] LABS: BUN/CREATININE RATIO 14.4 (10-20); CALCIUM 7.6 mg/dl (8.5-10.1); CREATININE 0.75 mg/dl (0.60-1.20); POTASSIUM 3.8 mmol/L (3.5-5.1)
--- NOTE | 2016-12-31 08:06 | Discharge Summary ---
Discharge Summary Date of Service Dec 31, 2016. (Esperanza Holt M.D.) Discharge Summary Admission Date: Dec 29, 2016 at 23:52 Discharge Date: Dec 31, 2016 Discharge Disposition: Home Principal Diagnosis: Gastroenteritis Problems/Secondary Diagnoses: (1) Dysuria (2) Asthma Status: Chronic Immunizations: Have You Had Influenza Vaccine: Unknown History of Tetanus Vaccine?: UTD Procedures: CT Abdomen 1. No acute process within the abdomen or pelvis. 2. 2.8 cm cyst vs. dominant follicle within the left ovary. (Esperanza Holt M.D.) Medication Reconciliation New Medications: Ketorolac (Toradol) 10 Mg Tab 10 MG PO Q6H PRN for Pain for 5 Days, #10 TAB Nitrofurantoin Monohyd Macrocr (Macrobid) 100 Mg Cap 100 MG PO BID for 3 Days, #6 CAP Ondansetron Odt (Zofran Odt) 8 Mg Soltab 8 MG SL Q6H PRN for Nausea for 10 Days, #15 TAB Continued Medications: Acetaminophen/Codeine (Tylenol W/Codeine #3) 300 Mg/30 Mg Tab 1 TAB PO Q4 PRN for Pain Albuterol Hfa (Ventolin Hfa) 200 Puffs/63702 Mcg Aers 2-4 PUFFS INH Q6H PRN for SOB/Wheezing Bupropion (Wellbutrin Sr) 100 Mg Ertab 100 MG PO QAM, #30 Escitalopram Oxalate (Escitalopram Oxalate) 10 Mg Tab 20 MG PO QAM, #30 Fluticasone Propionate (Nasal) (Flonase Allergy Relief) 50 Mcg/Act Spr 2 SPRAYS ASHA DAILY PRN for Nasal Congestion Hydroxyzine Pamoate (Vistaril) 50 Mg Cap 50 MG PO HS PRN for Anxiety Oxycodone HCl (Oxycodone HCl) 5 Mg Tab 5 MG PO Q6 PRN for Pain Discharge Exam Review of Systems: Constitutional: No fever, No chills, No sweats, No weight loss, No weakness , No fatigue, No problem reported Eyes: No worsening of vision, No eye pain, No redness, No discharge, No diplopia, No problem reported ENT: No hearing loss, No unusual epistaxis, No nasal symptoms, No sore throat, No tinnitus, No dental problems, No trouble swallowing, No problem reported Respiratory: No cough, No sputum, No wheezing, No shortness of breath, No dyspnea on exertion, No dyspnea at rest, No hemoptysis, No problem reported Cardiovascular: No chest pain, No orthopnea, No PND, No edema, No claudication, No palpitations, No problem reported Abdomen: No pain, No nausea, No vomiting, No diarrhea, No constipation, No GI bleeding, No problem reported Musculoskeletal: No joint pain, No muscle pain, No swelling, No calf pain, No problem reported Genitourinary - Female: + dysuria Neurologic: No memory loss, No paralysis, No weakness, No numbness/tingling , No vertigo, No balance problems, No problem reported Psychiatric: No depression symptoms, No anhedonism, No anxiety, No insomnia , No substance abuse, No problem reported Endocrine: No fatigue, No excessive thirst, No excessive urination, No problem reported Hematologic / Lymphatic: No abnormal bleeding/bruising, No clotting problems , No swollen lymph nodes, No night sweats, No problem reported Integumentary: No rash, No itch, No new/changing skin lesions, No color change, No bleeding, No problem reported Physical Exam: General Appearance: WD/WN, no apparent distress Eyes: normal inspection, PERRL, EOMI, sclerae normal ENT: normal ENT inspection, hearing grossly normal, TMs normal, pharynx normal Neck: supple, no JVD Respiratory/Chest: chest non-tender, lungs clear, normal breath sounds, no respiratory distress, no accessory muscle use Cardiovascular: regular rate, rhythm, no edema, no JVD, no murmur, normal peripheral pulses Abdomen / GI: normal bowel sounds, non tender, soft, no pulsatile mass Extremities: normal inspection, no pedal edema, normal range of motion 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 She has a chronic history of nausea and lower abdominal pain for the last few weeks but developed vomiting and diarrhea today. Nausea, vomiting and diarrhea with abdominal pain - Likely secondary to viral gastroenteritis - C. difficile negative - Shigella, salmonella, stool culture all negative - CT abdomen and pelvis:1. No acute process within the abdomen or pelvis. 2. 2.8 cm cyst vs. dominant follicle within the left ovary. - Patient admits she frequently gets pain from ovary/fibroid but this pain feels different, especially with the concomitant nausea/vomiting/diarrhea - Continued IV fluids - Dicyclomine given for nausea - Patient requested one injection of morphine to help curb the abdominal pain and to help her sleep; we discussed that morphine would not be necessary at this point - Gave Toradol IV for pain - Nausea/vomiting/abdo pain/diarrhea all improved after one night in hospital - Discharged with 10 day supply of anti nausea meds and 5 days of toradol prn Dysuria - Urine sent for culture on 12/30/16 - Culture not available at time of discharge - Will Rx empirically with macrobid 100mg BID x 3 days Anxiety/depression - Continue Wellbutrin and escitalopram Asthma: - Albuterol as needed Full code Total Time Spent: Less than 30 minutes This includes examination of the patient, discharge planning, medication reconciliation, and communication with other providers. (Esperanza Holt M.D.) Resident Physician Supervision Note: I interviewed and examined the patient. Discussed with Dr. Holt and agree with findings and plan as documented in the note. Any exceptions or clarifications are listed here: None Documented By: Tico Lucio feeling better less abdominal pain eating better. ready to go home. no new complaints vitals noted nad no pallor or icterus gastroenteritis - viral vs mild food poisoning - with subsequent abdominal pain dehydration and hypokalemia from gastroenteritis --> stable for home. short course prn toradol / zofran. discussed small but real potential for post-viral malabsorption and BRAT diet if occurs. stable for home (Tico Lucio D.O.) Discharge Instructions Please refer to the electronic Patient Visit Report (Discharge Instructions) for additional information. (Esperanza Holt M.D.) Additional Copies To Jaz Lopez D.O. Resident Tracking Resident Involvement: Resident Care Provided Care Provided: Adult [facility] Medicine (Esperanza Holt M.D.)
--- NOTE | 2016-12-31 08:19 | Discharge Instructions ---
Discharge Instructions Date of Service Dec 31, 2016. Admission Reason for Admission: Nausea, Vomiting, And Diarrhea Discharge Discharge Diagnosis / Problem: Gastroenteritis Discharge Goals Goal(s): Decrease discomfort Activity Recommendations Activity Limitations: per Instructions/Follow-up section . Instructions / Follow-Up Instructions / Follow-Up During this visit you were treated for gastroenteritis, which is usually caused by a virus. Your cultures from the stool samples given were negative for bacterial growth. Try to keep your fluids up; try to drink about 2L of water per day. You will be given a short course of anti-nausea medications and pain medications to take as needed Because you had some burning on urination, your urine was sent for culture. These results were not available at the time of your discharge. You will be treated for a UTI with nitrofurantoin twice daily for 7 days. Take this antibiotic with food. We recommend you follow up with your PCP within 1 week of your discharge from hospital. If your symptoms return, or worsen, please return to the ED or see your PCP. Current Hospital Diet Patient's current hospital diet: Regular Diet Discharge Diet Recommended Diet: Regular Diet Procedures Procedures Performed: CT abdomen: showed no abnormalities aside from the ovarian cyst which was already known by patient. Pending Studies Studies pending at discharge: yes List of pending studies: Urine culture Medical Emergencies . Who to Call and When: Medical Emergencies: If at any time you feel your situation is an emergency, please call 911 immediately. . Non-Emergent Contact Non-Emergency issues call your: Primary Care Provider . . "Provider Documentation" section prepared by Esperanza Holt. . VTE Core Measure Inpt VTE Proph given/why not?: SCD's
[2016-12-31] MEDS: BuPROPion SR 100 MG TABCR PO SCH (08:29)
[2016-12-31] MEDS: ESCITALOPRAM OXALATE 20 MG TAB PO SCH (08:29)
[2016-12-31] MEDS: DICYCLOMINE HCL 20 MG TAB PO SCH ×2 (08:29→11:49)
[2016-12-31] MEDS ORDERED: KETOROLAC TROMETHAMINE 10 MG TAB PO PRN (10:30)
[2016-12-31] MEDS ORDERED: ONDANSETRON 4 MG TAB PO PRN (10:30)
[2016-12-31] MEDS ORDERED: KETO10TA PO (11:02)
[2016-12-31] MEDS ORDERED: ONDA8TAB62 SL (11:02)
[2016-12-31] MEDS ORDERED: NITR-5 PO (11:02)
[2016-12-31 11:52] VITALS: BP 102/63; PULSE 61; TEMP 36.8; O2SAT 96
[2016-12-31] MEDS ORDERED: NITROFURANTOIN MONOHYDRATE 100 MG CAP PO SCH (12:45)
--- NOTE | 2016-12-31 13:11 | Medical Student: [facility] ---
Med Student Progress Note Date of Service Dec 31, 2016. Subjective Pt evaluation today including: conversation w/ patient No acute events overnight. Patient is feeling much better this morning. She continues to have diarrhea, but the stools are becoming more solid. No vomiting. No RODRIGEZ, chest pain, SOB. She continues to have the diffuse, crampy lower abdominal pain. She desires to go home today. Review of Systems Constitutional: No fever, No chills, No weight loss Eyes: No worsening of vision ENT: No hearing loss Respiratory: No cough, No sputum, No wheezing, No shortness of breath, No dyspnea on exertion Cardiac: No chest pain, No edema, No palpitations Abdomen: No pain, No nausea, No vomiting, No diarrhea, No constipation Female : + dysuria, No urinary frequency Skin: No rash Objective Vital Signs Date Time Temp Pulse Resp B/P (MAP) Pulse Ox O2 Delivery O2 Flow Rate FiO2 12/31/16 11:52 36.8 61 16 96 Room Air 12/31/16 08:00 Room Air 12/31/16 07:21 36.8 61 16 102/63 (76) 96 Room Air 12/31/16 00:00 Room Air 12/30/16 22:54 36.8 64 18 118/74 (89) 95 Room Air 12/30/16 20:00 Room Air 12/30/16 16:26 Room Air 12/30/16 15:28 36.7 80 18 104/64 (77) 97 Room Air Physical Exam General Appearance: WD/WN, no apparent distress Eyes: bilateral eyes normal inspection, bilateral eyes PERRL, bilateral eyes EOMI ENT: normal ENT inspection Neck: supple, no adenopathy, thyroid normal Respiratory/Chest: lungs clear, normal breath sounds, no respiratory distress, no accessory muscle use Cardiovascular: regular rate, rhythm, no edema, no gallop, no JVD, no murmur Abdomen: normal bowel sounds, soft, no organomegaly, + tenderness (diffuse in lower abdomen, more prominent in LLQ ) Extremities: non-tender, normal inspection 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, no motor/sensory deficits Skin: normal color, warm/dry Lymphatic: no adenopathy Laboratory Results Last 24 Hours Test 12/31/16 06:39 White Blood Count 4.41 K/uL Red Blood Count 3.63 M/uL Hemoglobin 10.9 g/dL Hematocrit 32.9 % Mean Corpuscular Volume 90.6 fL Mean Corpuscular Hemoglobin 30.0 pg Mean Corpuscular Hemoglobin Concent 33.1 g/dl Platelet Count 155 K/uL Mean Platelet Volume 11.6 fL Neutrophils (%) (Auto) 51.5 % Lymphocytes (%) (Auto) 37.0 % Monocytes (%) (Auto) 8.2 % Eosinophils (%) (Auto) 2.9 % Basophils (%) (Auto) 0.2 % Neutrophils # (Auto) 2.27 K/uL Lymphocytes # (Auto) 1.63 K/uL Monocytes # (Auto) 0.36 K/uL Eosinophils # (Auto) 0.13 K/uL Basophils # (Auto) 0.01 K/uL RDW Standard Deviation 45.2 fL RDW Coefficient of Variation 13.5 % Immature Granulocyte % (Auto) 0.2 % Immature Granulocyte # (Auto) 0.01 K/uL Sodium Level 144 mmol/L Potassium Level 3.8 mmol/L Chloride Level 116 mmol/L Carbon Dioxide Level 23 mmol/L Anion Gap 5.0 mmol/L Blood Urea Nitrogen 11 mg/dl Creatinine 0.75 mg/dl Est Creatinine Clear Calc Drug Dose 145.0 ml/min Estimated GFR () 129.3 Estimated GFR (Non- 111.6 BUN/Creatinine Ratio 14.4 Random Glucose 89 mg/dl Calcium Level 7.6 mg/dl Total Bilirubin 0.1 mg/dl Aspartate Amino Transf (AST/SGOT) 15 U/L Alanine Aminotransferase (ALT/SGPT) 24 U/L Alkaline Phosphatase 88 U/L Total Protein 5.4 gm/dl Albumin 2.7 gm/dl Globulin 2.7 gm/dl Albumin/Globulin Ratio 1.0 Assessment and Plan Assessment and Plan: Assessment: Mrs. Mendez is a 26 year old female with a PMH significant for anxiety/depression, concussion, bronchitis, asthma, ankle fracture, uterine fibroid, and 2.9 cm left ovarian cyst who presented on 12/29 for intractable vomiting and diarrhea of 1 day duration. Her history is also significant for 2 weeks of worsening lower abdominal pain that is stabbing and gassy in nature. She recently ate barbadian food for lunch the day before the intractable vomiting and diarrhea. She was also recently diagnosed with a uterine fibroid and left 2.8 cm ovarian cyst. On admission, the patient was febrile at 37.9 and her highest fever was 39. She was also tachycardic at 137. CO2 was low at 20 and Alk phos was elevated at 122. Abdominal/pelvic CT showed an unchanged 2.8 cm left ovarian cyst. It additionally showed fatty infiltration in her liver and an umbilical hernia. The imaging was negative for hydronephrosis, pneumoperitoneum, or pericholecystic infiltration. Today, vitals are WNL and Hgb is downtrending to 8.5 today. Lactic acid is normal at 1.8. It is plausible the diarrhea and vomiting are due to viral gastroenteritis, but coupled with the clinical picture of a 2 week history of diffuse abdominal pain warrants further investigation. It is also unlikely that a uterine fibroid and unruptured ovarian cyst would cause abdominal pain of this degree. Plan: Diarrhea/Vomiting/Diffuse lower abdominal pain - most likely viral gastroenteritis -C dif negative -Shigella, Salmonella, campylobacter and stool cultures negative -abd/pelvis CT does not indicate bowel obstruction, signs of peritonitis, or signs of pneumatosis -recommend drinking 2L fluids each day upon discharge -continue Tylenol 650 mg q4hr and Motrin 600 mg q6hr PRN upon discharge -continue Toradol 30 mg q6hr PRN upon discharge Dysuria -repeat UA showed 10-30 WBC, 1+ bacteria and >30 epithelial cells, no leukocyte esterase or nitrites -will treat for UTI empirically based on unspecific UA and sxs - continue Nitrofurantoin 100 mg BID for 7 days upon discharge (day 1 12/31/16) -urine culture sent Uterine fibroid/left ovarian cyst - most likely not causing severe abdominal pain/vomiting/diarrhea -Had f/u appointment with [facility] on 12/29, reschedule appointment Asthma -continue albuterol 2 puffs q6hr PRN upon discharge Anxiety/Depression -continue buproprion 100 mg PO daily upon discharge -continue escitalopram 20 mg PO daily upon discharge Smoking history -Nicoderm patch PRN Nausea -Zofran 4 mg PO q6hr PRN upon discharge
== END 2016-12-31 12:19 | disposition home or self-care (01) | DRG 392 ==
LOC: C.EDB 12:55 → C.MS4W 23:52 → ENRESERV 23:57
PROVIDERS: ADMIT Family Medicine; ATTEND Family Medicine
DX: A08.4 Viral intestinal infection, unspecified (principal); J45.909 Unspecified asthma, uncomplicated; Z83.3 Family history of diabetes mellitus; R30.0 Dysuria; E86.0 Dehydration; F41.8 Other specified anxiety disorders; F17.200 Nicotine dependence, unspecified, uncomplicated; E87.6 Hypokalemia

== ENCOUNTER 2017-02-02 20:28 | Emergency (ER) | payer OTHER ==
[~2017-02-02] VITALS: Ht 165.1 cm; Wt 114.7 kg
[~2017-02-02 20:28] MED LIST changes: +ACET-749 PO; +OXYC-609 PO; -OXYC1TAB3 PO
[2017-02-02 20:35] VITALS: TEMP 36.8; Ht 165.1 cm; Wt 114.7 kg
[2017-02-02] MEDS ORDERED: HYDROCODONE/ACETAMOPHEN 5/325MG TAB PO STA (20:46)
--- NOTE | 2017-02-02 21:47 | DIAGNOSTIC IMAGING REPORT ---
LEFT ANKLE MIN 3 VIEWS ROUTINE CLINICAL HISTORY: left ankle injury/pain/prior fracture trauma. Pain. COMPARISON: 04/19/2016 DISCUSSION: Mild soft tissue edema. Pre-existing screw traversing the medial malleolus. No acute bony abnormality. Minimal soft tissue edema IMPRESSION: Minimal soft tissue edema. Postoperative change as described. No acute bony abnormality. The above report was generated using voice recognition software. It may contain grammatical, syntax or spelling errors. Electronically signed by: Jesus Stanley M.D. 02/02/2017 9:46 PM Dictated Date/Time: 02/02/2017 9:45 PM
--- NOTE | 2017-02-02 21:58 | EMERGENCY ROOM VISIT NOTE ---
ED Visit Note First contact with patient: 20:43 CHIEF COMPLAINT: Left ankle injury/pain HISTORY OF PRESENT ILLNESS: This 26-year-old female presents the ER with chief complaint of left ankle pain. The patient states that she had surgery on her ankle [address] Ngo. She states she has a screw in her ankle. Yesterday when she was coming down stairs she stepped wrong and felt a sharp pain up the medial aspect of her ankle. The patient states that it has been painful since that time. She has been taking ibuprofen without any relief of the pain. REVIEW OF SYSTEMS: 6 system review was performed and was negative unless stated otherwise in history of present illness. PMH: Prior ankle fracture, asthma, cholecystectomy SOCIAL HISTORY: Patient lives with her daughter. The patient admits to tobacco use and occasional alcohol use. PHYSICAL EXAM: Vital Signs: Were reviewed Reviewed Nurse's notes. GEN.: 26-year -old white female appears uncomfortable secondary to pain. MENTAL STATUS: Alert , oriented, and cooperative. LEFT ANKLE: No gross bony deformity noted. No erythema or edema noted. Scar noted over the medial aspect of the ankle. She is tender to palpation over this area. Remainder of the ankle is nontender. No ligament instability noted. EMERGENCY DEPARTMENT COURSE: The patient was evaluated. The patient was given [place] 5/325 mg 2 tablets by mouth for pain. X-ray of the left ankle was ordered and interpreted by the radiologist and myself. DIAGNOSTICS:LEFT ANKLE MIN 3 VIEWS ROUTINE CLINICAL HISTORY: left ankle injury/pain/prior fracture trauma. Pain. COMPARISON: 04/19/2016 DISCUSSION: Mild soft tissue edema. Pre-existing screw traversing the medial malleolus. No acute bony abnormality. Minimal soft tissue edema IMPRESSION: Minimal soft tissue edema. Postoperative change as described. No acute bony abnormality. The above report was generated using voice recognition software. It may contain grammatical, syntax or spelling errors. Electronically signed by: Jesus Stanley M.D. 02/02/2017 9:46 PM The patient was informed of the findings. Since the patient did not overturn the ankle she was not placed in a gel splint. She was given crutches and discharged home in stable condition. The patient was requesting Huron as an outpatient. I do not feel that this is necessary. DIAGNOSIS: Left ankle pain DISCHARGE INSTRUCTIONS: Ice and elevation over the next 24 hours. Ibuprofen, 600 mg every 6 hours if needed for pain. Use crutches until weightbearing is tolerable. If there is no improvement in 3-[address] Ngo Problem List Medical Problems: (1) Abdominal cramping Status: Resolved (2) Abdominal pain Status: Resolved (3) Ankle fracture Status: Resolved (4) Asthma Status: Chronic (5) Asthma Status: Resolved (6) bent tailbone Status: Chronic (7) Bronchitis Status: Resolved (8) Bronchitis Status: Resolved (9) Bronchitis Status: Resolved (10) Concussion Status: Resolved (11) Costochondral pain Status: Resolved (12) Dehydration Status: Resolved (13) Emphysema lung Status: Resolved (14) Fever Status: Resolved (15) Hand laceration Status: Resolved (16) Headache Status: Resolved (17) Injury, nerve, sciatic Status: Chronic (18) LABOR Status: Resolved (19) Left hip pain Status: Resolved (20) Low back pain Status: Resolved (21) Nausea vomiting and diarrhea Status: Resolved (22) Nausea vomiting and diarrhea Status: Resolved (23) Neck pain Status: Resolved (24) Pharyngitis Status: Resolved (25) labor Status: Resolved (26) Sinusitis Status: Resolved (27) Spasm of back muscles Status: Resolved (28) Ulcer Status: Resolved (29) Vomiting and diarrhea Status: Resolved Surgical Problems: (1) History of tonsillectomy Status: Resolved Current/Historical Medications Scheduled Bupropion (Wellbutrin Sr), 100 MG PO QAM Escitalopram Oxalate (Escitalopram Oxalate), 20 MG PO QAM Scheduled PRN Albuterol Hfa (Ventolin Hfa), 2-4 PUFFS INH Q6H PRN for SOB/Wheezing Hydroxyzine Pamoate (Vistaril), 50 MG PO HS PRN for Anxiety Allergies Coded Allergies: Fish Allergy (Verified Allergy, Unknown, ANAPHYLAXIS, 11/25/16) allergic to all fish and seafood Shellfish Allergy (Verified Allergy, Unknown, ANAPHYLAXIS, 11/25/16) allergic to all fish and seafood Vital Signs Date Time Temp Pulse Resp B/P (MAP) Pulse Ox O2 Delivery O2 Flow Rate FiO2 02/02/17 20:35 36.8 89 16 127/88 96 Room Air Medications Administered Medications (Trade) Dose Ordered Sig/Eva Route Start Time Stop Time Status Last Admin Dose Admin Acetaminophen/ Hydrocodone Bitart ([place] 5/325 Tab) 2 tab NOW STAT PO 02/02/17 20:46 02/02/17 20:48 DC 02/02/17 21:00 2 TAB Departure Information Referrals Jaz Lopez D.O. (PCP) Patient Instructions [facility]
[2017-02-02 22:05] VITALS: BP 145/90; PULSE 82; O2SAT 98
== END 2017-02-02 22:05 | disposition home or self-care (01) ==
LOC: C.EDB 20:29 → C.EDD 22:05
DX: M25.572 Pain in left ankle and joints of left foot (principal); J45.909 Unspecified asthma, uncomplicated; J43.9 Emphysema, unspecified; Z87.820 Personal history of traumatic brain injury; Z90.89 Acquired absence of other organs; Z72.0 Tobacco use

== ENCOUNTER 2017-06-21 08:32 | Emergency (ER) | payer OTHER ==
[~2017-06-21] VITALS: Ht 165.1 cm; Wt 106.0 kg
[~2017-06-21 08:32] MED LIST changes: -ACET-749 PO; -BUPR100T8 PO; -FLUT0.15 NAE; -HYDR50CA2 PO; +LRS20 PO; +NRN/600 PO; -OXYC-609 PO; +ULT50 PO; -VNTHFA/IN INH
[2017-06-21 08:47] VITALS: TEMP 36.7; Ht 165.1 cm; Wt 106.0 kg
[2017-06-21] MEDS ORDERED: KETOROLAC TROMETHAMINE 30 MG/ML VIAL IV STA (09:09)
[2017-06-21] MEDS ORDERED: ONDANSETRON INJ 2 MG/ML 2 ML VIAL IV STA ×2 (09:09→10:26)
[2017-06-21] MEDS ORDERED: SODIUM CHLORIDE 0.9% 1000ML 1,000 ML IV STA (09:09)
[2017-06-21] MEDS ORDERED: MEDR150I19 IM (09:11)
[2017-06-21] MEDS ORDERED: HYDROCORTISONE (09:13)
[2017-06-21 09:51] LABS: BASO % 0.3 %; BASO ABS # 0.03 K/uL (0-0.2); EOS % 1.9 %; EOS ABS # 0.17 K/uL (0-0.5); HEMATOCRIT 38.9 % (37-47); HEMOGLOBIN 13.5 g/dL (12.0-16.0); IG# 0.03 K/uL (0.00-0.02); LYMPH % 15.5 %; LYMPH ABS # 1.38 K/uL (1.2-3.4); MEAN CELL VOLUME 88.4 fL (80-100); MEAN CORPUSCULAR HEMOGLOBIN 30.7 pg (25-34); MEAN CORPUSCULAR HGB CONC 34.7 g/dl (32-36); MEAN PLATELET VOLUME 12.3 fL (7.4-10.4); MONO % 4.7 %; MONO ABS # 0.42 K/uL (0.11-0.59); NEUT % 77.3 %; PLATELET COUNT 196 K/uL (130-400); RED CELL DISTRIBUTION WIDTH SD 41.8 fL (36.4-46.3); WHITE BLOOD COUNT 8.93 K/uL (4.8-10.8)
[2017-06-21 10:03] LABS: ALBUMIN 3.5 gm/dl (3.4-5.0); CALCIUM 8.3 mg/dl (8.5-10.1); CREATININE 0.74 mg/dl (0.60-1.20); POTASSIUM 3.7 mmol/L (3.5-5.1)
[2017-06-21 10:06] LABS: TOTAL PROTEIN 6.9 gm/dl (6.4-8.2)
[2017-06-21] MEDS ORDERED: ONDA4TAB10 SL (11:20)
--- NOTE | 2017-06-21 11:20 | EMERGENCY ROOM VISIT NOTE ---
History First contact with patient: 08:51 Chief Complaint: VOMITING Stated Complaint: VOMITING,DIARRHEA,FEVER,STOMACH PAIN History of Present Illness The patient is a 26 year old female who presents to the Emergency Room with complaints of nausea, vomiting and diarrhea. The patient reports that last night, she ate dinner and then became gassy and developed indigestion. She reports that she then developed vomiting and diarrhea. She has had multiple episodes of vomiting and diarrhea throughout the night. She reports an achy sensation throughout her abdomen. She rates her discomfort an 8/10. She denies any blood in her stools. She denies any fevers. Review of Systems A complete 10 point review of systems was reviewed with the patient with pertinent positives and negatives as per history of present illness. All else were negative. Past Medical/Surgical History Medical Problems: (1) Abdominal cramping (2) Abdominal pain (3) Ankle fracture (4) Asthma (5) Asthma (6) bent tailbone (7) Bronchitis (8) Bronchitis (9) Bronchitis (10) Concussion (11) Costochondral pain (12) Dehydration (13) Emphysema lung (14) Fever (15) Hand laceration (16) Headache (17) Injury, nerve, sciatic (18) LABOR (19) Left hip pain (20) Low back pain (21) Nausea vomiting and diarrhea (22) Nausea vomiting and diarrhea (23) Neck pain (24) Pharyngitis (25) labor (26) Sinusitis (27) Spasm of back muscles (28) Ulcer (29) Vomiting and diarrhea Surgical Problems: (1) History of tonsillectomy Family History Cancer Diabetes mellitus FH: kidney disease Gallbladder disease Heart disease Hypertension Social History Smoking Status: Current Every Day Smoker Alcohol Use: none Marital Status: single Housing Status: lives with family Occupation Status: employed Current/Historical Medications Scheduled Escitalopram Oxalate (Escitalopram Oxalate), 20 MG PO QAM Gabapentin (Neurontin), 600 MG PO TID Ondasetron Odt (Zofran Odt), 4 MG SL Q6H Scheduled PRN Albuterol Hfa (Ventolin Hfa), 2-4 PUFFS INH Q6H PRN for SOB/Wheezing Fluticasone Propionate (Fluticasone Propionate), 2 SPRAYS ASHA DAILY PRN for Nasal Congestion Hydroxyzine Pamoate (Vistaril), 50 MG PO HS PRN for Anxiety Miscellaneous Medications [Hydrocortisone Inj] Physical Exam Vital Signs Date Time Temp Pulse Resp B/P (MAP) Pulse Ox O2 Delivery O2 Flow Rate FiO2 06/21/17 11:48 87 18 145/77 98 06/21/17 09:51 87 18 124/65 98 Room Air 06/21/17 08:47 36.7 102 18 131/81 95 Room Air Physical Exam VITALS: Vitals are noted on the nurse's note and reviewed by myself. Vital signs stable. GENERAL: This is a 26-year-old female, in no acute distress, nondiaphoretic, well-developed well-nourished. SKIN: The skin was without rashes. EARS: External auditory canals clear, tympanic membranes pearly vivas without erythema or effusion bilaterally. EYES: Pupils equal round and reactive to light and accommodation. MOUTH: Mucous membranes moist. NECK: Supple without nuchal rigidity. No lymphadenopathy. HEART: Regular rate and rhythm without murmurs gallops or rubs. LUNGS: Clear to auscultation bilaterally without wheezes, rales or rhonchi. ABDOMEN: Positive bowel sounds x 4. Soft, no focal tenderness to palpation. NEURO: Patient was alert and oriented to person place and time. Medical Decision & Procedures Laboratory Results 06/21/17 09:25 Red Blood Count 4.40, Mean Corpuscular Volume 88.4, Mean Corpuscular Hemoglobin 30.7, Mean Corpuscular Hemoglobin Concent 34.7, Mean Platelet Volume 12.3, Neutrophils (%) (Auto) 77.3, Lymphocytes (%) (Auto) 15.5, Monocytes (%) (Auto) 4.7, Eosinophils (%) (Auto) 1.9, Basophils (%) (Auto) 0.3, Neutrophils # (Auto) 6.90, Lymphocytes # (Auto) 1.38, Monocytes # (Auto) 0.42, Eosinophils # (Auto) 0.17, Basophils # (Auto) 0.03 06/21/17 09:25 Test 06/21/17 09:20 06/21/17 09:25 Urine Color YELLOW Urine Appearance CLEAR (CLEAR) Urine pH 7.0 (4.5-7.5) Urine Specific [place] 1.008 (1.000-1.030) Urine Protein NEG (NEG) Urine Glucose (UA) NEG (NEG) Urine Ketones NEG (NEG) Urine Occult Blood NEG (NEG) Urine Nitrite NEG (NEG) Urine Bilirubin NEG (NEG) Urine Urobilinogen NEG (NEG) Urine Leukocyte Esterase NEG (NEG) Urine Test NEG (NEG) White Blood Count 8.93 K/uL (4.8-10.8) Red Blood Count 4.40 M/uL (4.2-5.4) Hemoglobin 13.5 g/dL (12.0-16.0) Hematocrit 38.9 % (37-47) Mean Corpuscular Volume 88.4 fL (80-100) Mean Corpuscular Hemoglobin 30.7 pg (25-34) Mean Corpuscular Hemoglobin Concent 34.7 g/dl (32-36) Platelet Count 196 K/uL (130-400) Mean Platelet Volume 12.3 fL (7.4-10.4) Neutrophils (%) (Auto) 77.3 % Lymphocytes (%) (Auto) 15.5 % Monocytes (%) (Auto) 4.7 % Eosinophils (%) (Auto) 1.9 % Basophils (%) (Auto) 0.3 % Neutrophils # (Auto) 6.90 K/uL (1.4-6.5) Lymphocytes # (Auto) 1.38 K/uL (1.2-3.4) Monocytes # (Auto) 0.42 K/uL (0.11-0.59) Eosinophils # (Auto) 0.17 K/uL (0-0.5) Basophils # (Auto) 0.03 K/uL (0-0.2) RDW Standard Deviation 41.8 fL (36.4-46.3) RDW Coefficient of Variation 13.0 % (11.5-14.5) Immature Granulocyte % (Auto) 0.3 % Immature Granulocyte # (Auto) 0.03 K/uL (0.00-0.02) Anion Gap 8.0 mmol/L (3-11) Est Creatinine Clear Calc Drug Dose 141.8 ml/min Estimated GFR () 131.4 Estimated GFR (Non- 113.4 BUN/Creatinine Ratio 13.2 (10-20) Calcium Level 8.3 mg/dl (8.5-10.1) Total Bilirubin 0.5 mg/dl (0.2-1) Aspartate Amino Transf (AST/SGOT) 15 U/L (15-37) Alanine Aminotransferase (ALT/SGPT) 36 U/L (12-78) Alkaline Phosphatase 134 U/L (45-117) Total Protein 6.9 gm/dl (6.4-8.2) Albumin 3.5 gm/dl (3.4-5.0) Globulin 3.4 gm/dl (2.5-4.0) Albumin/Globulin Ratio 1.0 (0.9-2) Lipase 99 U/L (73-393) Medications Administered Medications (Trade) Dose Ordered Sig/Eva Route Start Time Stop Time Status Last Admin Dose Admin Sodium Chloride 1,000 ml @ 999 mls/hr Q1H1M STAT IV 06/21/17 09:09 06/21/17 10:09 DC 06/21/17 09:49 999 MLS/HR Ondansetron HCl (Zofran Inj) 4 mg NOW STAT IV 06/21/17 09:09 06/21/17 09:10 DC 06/21/17 09:49 4 MG Ketorolac Tromethamine (Toradol Inj) 30 mg NOW STAT IV 06/21/17 09:09 06/21/17 09:10 DC 06/21/17 09:49 30 MG Ondansetron HCl (Zofran Inj) 4 mg NOW STAT IV 06/21/17 10:26 06/21/17 10:27 DC 06/21/17 10:41 4 MG Medical Decision Differential diagnosis includes viral gastroenteritis, foodborne illness, colitis, among others. The patient is a 26-year-old female who presents today complaining of nausea, vomiting and diarrhea. Labs revealed no leukocytosis or concerning electrolyte abnormalities. Patient was treated with IV fluids, Zofran and Toradol with relief. She was able to tolerate oral fluids. She will be discharged home with a prescription of Zofran and follow-up with her primary care provider is she verbalized understanding of my assessment and treatment plan and was discharged home in good condition. Medication Reconcilliation Current Medication List: was personally reviewed by me Blood Pressure Screening Patient's blood pressure: Normal blood pressure Impression Primary Impression: Nausea, vomiting, and diarrhea Departure Information Dispostion Home / Self-Care Condition GOOD Prescriptions Ondasetron Odt (ZOFRAN ODT) 4 Mg Tab 4 MG SL Q6H for Nausea, #15 TAB Prov: Dorita Ashley ., VALDEMAR 06/21/17 Referrals Kasia Grady (PCP) Patient Instructions My [facility] Additional Instructions You have been prescribed Zofran to be used for any nausea or vomiting. Take as prescribed. Continue to take small sips of fluids to stay well hydrated. For pain control, you can use the following [id number] medicines (if >12 yo): - Regular strength (325mg/tab) Tylenol (acetaminophen) 2 tabs every 4-6 hours as needed. Do not exceed 12 tablets in a 24 hour period. Avoid taking more than 4 grams (4000 mg) of Tylenol per day. This includes any other sources of acetaminophen you may take on a regular basis. - Regular strength (200 mg/tab) Advil (ibuprofen) 1-2 tabs every 4-6 hours as needed. Do not exceed a dose of 3200 mg per day. Follow-up with your primary care provider this week for a recheck. Return to the emergency department with worsening vomiting, worsening abdominal pain, high fevers or any other new/concerning symptoms.
[2017-06-21 11:48] VITALS: BP 145/77; PULSE 87; O2SAT 98
[2017-12-13] MEDS ORDERED: FLNIN/ NAE (16:24)
[2018-01-17] MEDS ORDERED: VNTHFA/IN INH (16:25)
== END 2017-06-21 11:48 | disposition home or self-care (01) ==
LOC: C.EDB 08:33 → C.EDC 11:48
DX: R11.2 Nausea with vomiting, unspecified (principal); R19.7 Diarrhea, unspecified; J45.909 Unspecified asthma, uncomplicated; F17.200 Nicotine dependence, unspecified, uncomplicated; Z87.820 Personal history of traumatic brain injury; Z90.89 Acquired absence of other organs; Z83.3 Family history of diabetes mellitus; Z82.49 Family history of ischemic heart disease and other diseases of the circulatory system

== ENCOUNTER 2017-08-25 20:03 | Emergency (ER) | payer OTHER ==
[~2017-08-25] VITALS: Ht 165.1 cm; Wt 118.0 kg
[~2017-08-25 20:03] MED LIST changes: +FLNIN/ NAE; +HYDR50CA2 PO; +HYDROCORTISONE; -LRS20 PO; +ONDA4TAB10 SL; -ULT50 PO; +VNTHFA/IN INH
[2017-08-25 20:05] VITALS: TEMP 36.6; Ht 165.1 cm; Wt 118.0 kg
[2017-08-25] MEDS ORDERED: KETOROLAC TROMETHAMINE 30 MG/ML VIAL IV STA (20:36)
[2017-08-25] MEDS ORDERED: CYCLOBENZAPRINE HCL 10 MG TAB PO STA (20:36)
--- NOTE | 2017-08-25 20:44 | EMERGENCY ROOM VISIT NOTE ---
History First contact with patient: 20:23 Chief Complaint: BACK PAIN Stated Complaint: SEVERE BACK PAIN History of Present Illness The patient is a 26 year old female who presents to the Emergency Room with complaints of severe low back pain radiating down the left leg that has gotten significantly worse over the last 2 days. The patient undergoes manipulation with Dr. Blue. She thinks that it has been making her back pain worse. She also describes weakness, numbness and tingling into the left leg. She has been taking ibuprofen and Tylenol with minimal relief of her symptoms. She denies any urinary or bowel incontinence. The patient has a history of chronic pain. She was undergoing cortisone injections in her back. Review of Systems 6 system review negative. Please see pertinent positives in the history of present illness section. Past Medical/Surgical History Medical Problems: (1) Abdominal cramping (2) Abdominal pain (3) Ankle fracture (4) Asthma (5) Asthma (6) bent tailbone (7) Bronchitis (8) Bronchitis (9) Bronchitis (10) Concussion (11) Costochondral pain (12) Dehydration (13) Emphysema lung (14) Fever (15) Hand laceration (16) Headache (17) Injury, nerve, sciatic (18) LABOR (19) Left hip pain (20) Low back pain (21) Nausea vomiting and diarrhea (22) Nausea vomiting and diarrhea (23) Neck pain (24) Pharyngitis (25) labor (26) Sinusitis (27) Spasm of back muscles (28) Ulcer (29) Vomiting and diarrhea Surgical Problems: (1) History of tonsillectomy Family History Cancer Diabetes mellitus FH: kidney disease Gallbladder disease Heart disease Hypertension Social History Smoking Status: Former Smoker Alcohol Use: none Marital Status: single Housing Status: lives with family Occupation Status: employed Current/Historical Medications Scheduled Cyclobenzaprine Hcl (Flexeril), 10 MG PO TID Escitalopram Oxalate (Lexapro), 20 MG PO DAILY Lamotrigine (Lamictal), 50 MG PO DAILY Methylprednisolone (Medrol Dosepak), 0 PO DAILY Scheduled PRN Acetaminophen (Tylenol), 1,000 MG PO DIRECTED PRN for Pain or Fever Albuterol Hfa (Ventolin Hfa), 2 PUFFS INH Q6H PRN for SOB/Wheezing Fluticasone Propionate (Fluticasone Propionate), 2 SPRAYS ASHA DAILY PRN for Nasal Congestion Hydroxyzine Pamoate (Vistaril), 50 MG PO HS PRN for Anxiety Oxycodone/Acetaminophen 5MG/325MG (Percocet 5MG/325MG), 1 TAB PO Q4H PRN for Pain Physical Exam Vital Signs Date Time Temp Pulse Resp B/P (MAP) Pulse Ox O2 Delivery O2 Flow Rate FiO2 08/25/17 23:42 95 20 131/88 99 08/25/17 22:19 104 20 146/91 96 Room Air 08/25/17 20:05 36.6 107 20 124/81 95 Room Air Physical Exam VITALS: Vitals are noted on the nurse's note and reviewed by myself. Vital signs stable. GENERAL: 26-year-old female, in moderate discomfort, SKIN: The skin was without rashes, erythema, edema, or bruising. HEAD: Normocephalic atraumatic. NECK: Cervical spine is nontender. MUSCULOSKELETAL: Slight weakness noted with flexion of the left leg at the hip. Tenderness to palpation over the mid lumbar spinous processes. Muscle spasms present in the paraspinous muscles in this area. Tenderness to palpation over the left SI joint. DP pulses +2 bilaterally. Sensation in the lower extremities is intact bilaterally. Unable to perform straight leg test secondary to pain. NEURO: Patient was alert and oriented to person place and time. Subjective weakness with flexion of the left hip as noted above. Medical Decision & Procedures ER Provider Diagnostic Interpretation: MRI lumbar spine Patient Name: ROBERTO GUADARRAMA Unit Number: [id number] Dictated: 08/25/172209 Transcribed: 08/25/172299 Printed Date/Time: [~ rep prt dt]/[~ rep prt tm] [~ rep ct labl] - [~ rep ct ivnm] [facility] [place] [address] Dictated: 08/25/172209 Transcribed: 08/25/172299 Printed Date/Time: [~ rep prt dt]/[~ rep prt tm] [~ rep ct labl] - [~ rep ct ivnm] IMPRESSION: Unremarkable MRI of the lumbar spine. Dictated: 08/25/2017 10:10 PM Transcribed: 08/25/2017 11:00 PM CARLENE_Marisol Electronically signed by: Stephane Booth M.D. 08/25/2017 11:03 PM Dictated Date/Time: 08/25/2017 10:10 PM The status of this report is Signed. Draft = Not yet reviewed or approved by Radiologist. Signed = Reviewed and approved by Radiologist. <AttendingPhy></AttendingPhy> <FamilyPhy>Kasia Grady A. P.A.</FamilyPhy> < PrimaryPhy>Kasia Grady A. P.A.</PrimaryPhy> <UnitNumber>[id number]</ UnitNumber> <VisitNumber>[id number]</VisitNumber> <PatientName>ROBERTO GUADARRAMA</PatientName> <DateOfBirth>1990</DateOfBirth> <Location>[facility]</Location > <ServiceDate>08/25/17</ServiceDate> <MNE>ESINDI</MNE> <OrderingPhy>Flavia Russell PA-C</OrderingPhy> <OrderingPhyMNE>f rep ord dr lopez</OrderingPhyMNE> < DictatingPhyMNE>f rep dict dr lopez</DictatingPhyMNE> <CCListMNE>f rep ct mne</ CCListMNE> <AdmittingPhyMNE>f pt admit dr lopez</AdmittingPhyMNE> <AttendingPhyMNE >f pt attend dr lopez</AttendingPhyMNE> <ConsultingPhyMNE>f pt consult dr lopez</ConsultingPhyMNE> <FamilyPhyMNE>f pt fam dr lopez</FamilyPhyMNE> <OtherPhyMNE>f pt other dr lopez</OtherPhyMNE> < PrimaryPhyMNE>f pt prim care dr lopez</PrimaryPhyMNE> <ReferringPhyMNE>f pt referring dr lopez</ReferringPhyMNE> Medications Administered Medications (Trade) Dose Ordered Sig/Eva Route Start Time Stop Time Status Last Admin Dose Admin Hydromorphone HCl (Dilaudid Inj) 1 mg Q2H PRN IV 08/25/17 20:45 08/26/17 00:06 DC 08/25/17 20:59 1 MG Ketorolac Tromethamine (Toradol Inj) 30 mg NOW STAT IV 08/25/17 20:36 08/25/17 20:40 DC 08/25/17 20:59 30 MG Cyclobenzaprine HCl (Flexeril Tab) 10 mg NOW STAT PO 08/25/17 20:36 08/25/17 20:40 DC 08/25/17 20:59 10 MG Oxycodone/ Acetaminophen (Percocet 5/ 325MG Home Pack) 1 homepack UD ONCE PO 08/25/17 22:30 08/25/17 22:31 DC 08/25/17 22:27 1 HOMEPACK Hydromorphone HCl (Dilaudid Inj) 1 mg ONE ONCE IV 08/25/17 22:30 08/25/17 22:31 DC 08/25/17 22:27 1 MG ED Course The patient was seen and examined Saline lock was established She was given 1 dose of Dilaudid 1 mg IV. She was also given Toradol 30 mg IV. An MRI was performed The patient was reassessed. She was having significant pain after the MRI. She was given an additional dose of Dilaudid. Findings of the MRI were thoroughly discussed with the patient and the patient' s grandmother. They voiced understanding. She was given a home pack of Percocet Discharge instructions were reviewed, and she was discharged in good condition Medical Decision Differential diagnosis: Spine fracture, ligamentous injury, subluxation, spondylolisthesis, spondylosis, herniated disc, contusion, muscle spasm This patient is a 26-year-old female presents to the emergency department with severe back pain and weakness of the left leg. On exam, she was significantly tense in the lumbar area. She had difficulty flexing the left hip. Sensation appeared to be intact in the lower extremities bilaterally. An MRI was performed. No significant abnormalities were noted. The pain is likely muscular in nature. The patient had good symptomatic relief in the emergency department. I believe she is stable to be discharged home. She will be sent home with a course of steroids, muscle relaxants and narcotics. She was encouraged to call her primary care physician in addition to her orthopedic doctor in the morning for close follow-up. She is in agreement. She will return with any new or worsening symptoms This chart was completed in part utilizing [employer] Voice Recognition software. Attempts were made to minimize the grammatical errors, random word insertions, pronoun errors and incomplete sentences. Any formal questions or concerns about the content, text or information contained within the body of this dictation should be directly addressed to the provider for clarification. Medication Reconcilliation Current Medication List: was personally reviewed by me Blood Pressure Screening Patient's blood pressure: Normal blood pressure Impression Primary Impression: Low back pain Departure Information Dispostion Home / Self-Care Condition GOOD Prescriptions Methylprednisolone (MEDROL DOSEPAK) 4 Mg Abdelrahman 0 PO DAILY, #1 PKT Prov: Flavia Russell PA-C 08/25/17 Cyclobenzaprine Hcl (FLEXERIL) 10 Mg Tab 10 MG PO TID for Muscle Spasms, #20 TAB Prov: Flavia Russell PA-C 08/25/17 Oxycodone/Acetaminophen 5MG/325MG (PERCOCET 5MG/325MG) Tab 1 TAB PO Q4H Y for Pain, #15 TAB For Initial Treatment Prov: Flavia Russell PA-C 08/25/17 Referrals No Doctor, Assigned (PCP) William Hernandez D.C. Patient Instructions My [facility] Additional Instructions You were seen and evaluated in the emergency department for back pain. Please rest. No strenuous activity while your back is still painful Please follow-up with the orthopedic doctor. Call tomorrow morning for a follow -up appointment. Please take the entire course of steroids Ibuprofen 600 mg every 6 hours Percocet 1-2 tabs every 4 hours for severe pain. Do not drink alcohol or drive while taking this medication. This may be taken with ibuprofen, but avoid Tylenol. Flexeril every 8 hours as needed for muscle spasms. Please do not drink alcohol or drive or taking this medication. Ice over the lower back over the next 48 hours. Lying on a hard surface may help with the pain. No strenuous activity until your back is feeling better Return to the emergency department if you have any of the following symptoms: -Numbness or tingling in your groin -Worsening pain -Fever -Losing control of your bowels or bladder -Worsening weakness Please also follow-up with your primary care physician within 1 week for to recheck
[2017-08-25] MEDS ORDERED: HYDROmorphone INJ 1 MG/ML SYR IV PRN (20:45)
[2017-08-25] MEDS ORDERED: LAMO25TA PO (21:05)
[2017-08-25] MEDS ORDERED: ESCI1TAB10 PO (21:05)
[2017-08-25] MEDS ORDERED: ACET-1256 PO (21:05)
[2017-08-25] MEDS ORDERED: CYCL10TA6 PO (22:17)
[2017-08-25] MEDS ORDERED: METH4PAK PO (22:17)
[2017-08-25] MEDS ORDERED: OXYC-57 PO (22:17)
[2017-08-25] MEDS ORDERED: PERCOCET HOME PACK PO ONE (22:30)
[2017-08-25] MEDS ORDERED: HYDROmorphone INJ 1 MG/ML SYR IV ONE (22:30)
--- NOTE | 2017-08-25 23:01 | DIAGNOSTIC IMAGING REPORT ---
MRI OF THE LUMBAR SPINE WITHOUT IV CONTRAST CLINICAL HISTORY: Low back pain. Left lower extremity radiculopathy. COMPARISON STUDY: Abdominal CT dated 12/29/2016. TECHNIQUE: MRI of the lumbar spine is performed utilizing various T1 and T2-weighted sequences in the axial and sagittal planes. IV contrast was not administered for this examination. FINDINGS: Lumbar spine: Vertebral body height and alignment are maintained throughout the lumbar spine. Normal marrow signal intensity is preserved throughout the visualized bony structures. The transverse and spinous processes are intact. There is no evidence of spondylolysis. No destructive osseous lesion is identified. Intervertebral discs: Normal in height and signal intensity. Spinal cord: The visualized spinal cord is normal in morphology and signal intensity. The conus medullaris terminates at the level of L1. The nerve roots of the cauda equina are normal in morphology. L1-L2: Unremarkable. L2-L3: Unremarkable. L3-L4: Unremarkable. L4-L5: Unremarkable. L5-S1: Unremarkable. Sacrum: The visualized sacrum is normal in morphology and signal intensity. Soft tissues: The paraspinous soft tissues are within normal limits. The partially imaged retroperitoneal structures are grossly unremarkable but incomplete evaluated. IMPRESSION: Unremarkable MRI of the lumbar spine. Dictated: 08/25/2017 10:10 PM Transcribed: 08/25/2017 11:00 PM [email or web address] Electronically signed by: Stephane Booth M.D. 08/25/2017 11:03 PM Dictated Date/Time: 08/25/2017 10:10 PM
[2017-08-25 23:42] VITALS: BP 131/88; PULSE 95; O2SAT 99
== END 2017-08-25 23:44 | disposition home or self-care (01) ==
LOC: C.EDB 20:05 → C.EDC 23:44
DX: M54.16 Radiculopathy, lumbar region (principal); G89.29 Other chronic pain; J45.909 Unspecified asthma, uncomplicated; Z87.891 Personal history of nicotine dependence; Z83.3 Family history of diabetes mellitus; Z82.49 Family history of ischemic heart disease and other diseases of the circulatory system; Z83.79 Family history of other diseases of the digestive system; Z84.1 Family history of disorders of kidney and ureter

== ENCOUNTER 2018-01-17 17:22 | Emergency (ER) | payer OTHER ==
[~2018-01-17] VITALS: Ht 165.1 cm; Wt 119.1 kg
[~2018-01-17 17:22] MED LIST changes: -HYDR50CA2 PO; -HYDROCORTISONE; -LXP10 PO; -NRN/600 PO; -ONDA4TAB10 SL
[2018-01-17 17:27] VITALS: TEMP 36.7; Ht 165.1 cm; Wt 119.1 kg
[2018-01-17] MEDS ORDERED: SODIUM CHLORIDE 0.9% 1000ML 1,000 ML IV STA (18:20)
[2018-01-17] MEDS ORDERED: NRN100 PO (18:20)
[2018-01-17] MEDS ORDERED: LXP/20 PO (18:20)
[2018-01-17] MEDS ORDERED: MoRPHine SULFATE 4 MG/ML 1 ML CARP\\VIAL IV STA ×2 (18:20→20:21)
[2018-01-17] MEDS ORDERED: LMC25 PO (18:20)
[2018-01-17] MEDS ORDERED: GABA-1219 PO (18:20)
[2018-01-17] MEDS ORDERED: ONDANSETRON INJ 2 MG/ML 2 ML VIAL IV STA (18:20)
[2018-01-17] MEDS ORDERED: CYCL10TA7 PO (18:20)
[2018-01-17 18:38] LABS: BASO % 0.3 %; BASO ABS # 0.03 K/uL (0-0.2); EOS % 1.5 %; EOS ABS # 0.16 K/uL (0-0.5); HEMATOCRIT 42.3 % (37-47); HEMOGLOBIN 14.3 g/dL (12.0-16.0); IG# 0.05 K/uL (0.00-0.02); LYMPH % 28.1 %; LYMPH ABS # 3.01 K/uL (1.2-3.4); MEAN CELL VOLUME 87.2 fL (80-100); MEAN CORPUSCULAR HEMOGLOBIN 29.5 pg (25-34); MEAN CORPUSCULAR HGB CONC 33.8 g/dl (32-36); MEAN PLATELET VOLUME 12.3 fL (7.4-10.4); MONO % 7.4 %; MONO ABS # 0.79 K/uL (0.11-0.59); NEUT % 62.2 %; NEUT ABS # 6.66 K/uL (1.4-6.5); PLATELET COUNT 239 K/uL (130-400); RED CELL DISTRIBUTION WIDTH CV 13.3 % (11.5-14.5); RED CELL DISTRIBUTION WIDTH SD 42.6 fL (36.4-46.3)
--- NOTE | 2018-01-17 18:59 | DIAGNOSTIC IMAGING REPORT ---
SINGLE VIEW CHEST CLINICAL HISTORY: Left posterior rib pain. FINDINGS: An AP, portable, upright chest radiograph is compared to study dated 05/25/2016. The cardiomediastinal silhouette is unremarkable. The lungs and pleural spaces are clear. No pneumothorax is seen. The bony thorax is grossly intact. IMPRESSION: No active disease in the chest. Electronically signed by: Stephane Booth M.D. 01/17/2018 6:58 PM Dictated Date/Time: 01/17/2018 6:57 PM
[2018-01-17 19:01] LABS: ALBUMIN 3.6 gm/dl (3.4-5.0); ALKALINE PHOSPHATASE 123 U/L (45-117); ALT/SGPT 29 U/L (12-78); AST/SGOT 16 U/L (15-37); BLOOD UREA NITROGEN 13 mg/dl (7-18); CALCIUM 8.8 mg/dl (8.5-10.1); CARBON DIOXIDE 25 mmol/L (21-32); CREATININE 0.71 mg/dl (0.60-1.20); GLUCOSE 86 mg/dl (70-99); LIPASE 191 U/L (73-393); POTASSIUM 4.3 mmol/L (3.5-5.1); SODIUM 137 mmol/L (136-145); TOTAL PROTEIN 7.1 gm/dl (6.4-8.2)
--- NOTE | 2018-01-17 19:51 | DIAGNOSTIC IMAGING REPORT ---
ABDOMEN AND PELVIS CT WITHOUT CONTRAST CT DOSE: 1306.81 mGy.cm HISTORY: L back/post rib pain/LLQ abd pain TECHNIQUE: Multiaxial CT images of the abdomen and pelvis were performed without contrast. A dose lowering technique was utilized adhering to the principles of ALARA. COMPARISON STUDY: Abdomen and pelvis CT 12/29/2016. FINDINGS: Mild air trapping at the lung bases. No pneumoperitoneum. No pneumatosis. No fractures within the visualized osseous structures. The unenhanced liver, spleen, pancreas, gallbladder, adrenal glands, and kidneys are unremarkable. No renal or ureteral calculi. No hydronephrosis. No retroperitoneal lymphadenopathy. The bladder, uterus, and right ovary are unremarkable. There is again noted a 2.5 cm cyst within the left ovary. This is not significant changed. There is trace intermediate density fluid within the deep pelvis. Suboptimal evaluation for bowel pathology due to the lack of intravenous and oral contrast. However, there is no definite bowel wall thickening or obstruction. Normal appendix. IMPRESSION: 1. No bowel wall thickening or obstruction. 2. Normal appendix. 3. No change in the 2.5 cm left ovarian cyst. 3. Trace pelvic free fluid. This is intermediate density may represent complex fluid or a small amount of blood products. Electronically signed by: Jackson Arambula M.D. 01/17/2018 7:50 PM Dictated Date/Time: 01/17/2018 7:25 PM
[2018-01-17] MEDS ORDERED: TRAM-10 PO (20:20)
[2018-01-17] MEDS ORDERED: TRAMADOL HCL 50 MG HOME PACK PO ONE (20:30)
[2018-01-17 20:32] VITALS: BP 144/85; PULSE 94; O2SAT 99
--- NOTE | 2018-01-17 20:33 | EMERGENCY ROOM VISIT NOTE ---
History First contact with patient: 17:30 Chief Complaint: BACK PAIN Stated Complaint: SEVERE LEFT BACK PAIN, NAUSEA History of Present Illness The patient is a 27 year old female who presents to the Emergency Room with complaints of left flank pain, nausea and loose stools. The patient reports that her symptoms started approximately 4 days ago. The patient reports a history of back problems, and reports that this feels similar. She denies any worsening pain with deep breathing. Her pain is worsened with movement. The patient reports that she did have menstruation earlier in the month. She previously was on Depo-Provera shots. She also reports a history of ovarian cysts. She denies any pain extending into the pelvis. She reports mild dysuria and increased urinary frequency. She has had loose stools without ruthann watery diarrhea. She currently rates her discomfort an 8 out of 10. Review of Systems HEENT: Denies dizziness, visual problems, hearing loss, tinnitus. Denies difficulty swallowing or oral lesions. PULMONARY: Denies cough, shortness of breath, sputum production or hemoptysis. CARDIOVASCULAR: Denies chest pain, palpitations, dyspnea on exertion, orthopnea or peripheral edema. GASTROINTESTINAL: See HPI. GENITOURINARY: See HPI. NEUROLOGIC: Denies history of epilepsy, CVA, TIA or chronic headaches. MUSCULOSKELETAL: Denies history of joint tenderness/swelling. SKIN: Denies rashes or lesions. PSYCHIATRIC: Denies history of depression or mental illness. ENDOCRINE: Denies history of diabetes or thyroid disorders. Past Medical/Surgical History Medical Problems: (1) Abdominal cramping (2) Abdominal pain (3) Ankle fracture (4) Asthma (5) Asthma (6) bent tailbone (7) Bronchitis (8) Bronchitis (9) Bronchitis (10) Concussion (11) Costochondral pain (12) Dehydration (13) Emphysema lung (14) Fever (15) Hand laceration (16) Headache (17) Injury, nerve, sciatic (18) LABOR (19) Left hip pain (20) Low back pain (21) Nausea vomiting and diarrhea (22) Nausea vomiting and diarrhea (23) Neck pain (24) Pharyngitis (25) labor (26) Sinusitis (27) Spasm of back muscles (28) Ulcer (29) Vomiting and diarrhea Surgical Problems: (1) History of tonsillectomy Family History Cancer Diabetes mellitus FH: kidney disease Gallbladder disease Heart disease Hypertension Social History Smoking Status: Current Every Day Smoker Alcohol Use: none Marital Status: single Housing Status: lives with family Occupation Status: employed Current/Historical Medications Scheduled Cyclobenzaprine HCl (Cyclobenzaprine HCl), 10 MG PO BID Escitalopram Oxalate (Escitalopram Oxalate), 20 MG PO QAM Gabapentin (Gabapentin), 100 MG PO BID Gabapentin (Gabapentin), 300 MG PO HS Lamotrigine (Lamotrigine), 100 MG PO QAM Scheduled PRN Acetaminophen (Tylenol), 1,000 MG PO Q6H PRN for Pain or Fever Albuterol Hfa (Ventolin Hfa), 2 PUFFS INH Q6H PRN for SOB/Wheezing Hydroxyzine Pamoate (Vistaril), 50 MG PO HS PRN for Anxiety Tramadol (Ultram), 1 TAB PO Q4H PRN for Pain Physical Exam Vital Signs Date Time Temp Pulse Resp B/P (MAP) Pulse Ox O2 Delivery O2 Flow Rate FiO2 01/17/18 19:39 86 18 136/68 99 Room Air 01/17/18 18:55 84 18 138/92 95 Room Air 01/17/18 17:27 36.7 100 20 126/83 96 Room Air Physical Exam CONSTITUTIONAL: Morbidly obese female, alert and oriented X 3 with positive affect. Patient appears in moderate discomfort from pain. HEENT: Normocephalic, atraumatic. Pupils equal, round and reactive. Ears and nares are clear. No scleral icterus or conjunctival injection/pallor. OROPHARYNX: No tonsillar hypertrophy, posterior pharyngeal erythema or exudates. NECK: Full active range of motion without discomfort. RESPIRATORY: Clear to auscultation bilaterally with no wheezing, crackles, rhonchi or stridor. CARDIOVASCULAR: Regular rate and rhythm with no murmurs, rubs or gallops. GASTROINTESTINAL: Bowel sounds present in all quadrants. No abdominal tenderness to palpation in the left upper or left lower quadrant. MUSCULOSKELETAL: Examination shows tenderness to palpation through the left posterior ribs and left flank/back region. No ecchymosis, abrasions or soft tissue edema. Movement of the back does seem to worsen her discomfort. Negative logroll. Negative sitting straight leg raise. INTEGUMENTARY: No rash or other significant dermatologic conditions noted. Specifically the patient has no left dermatomal rashes on the torso or lower back region. NEUROLOGIC: Cranial nerves II-XII grossly intact. No focal neurologic deficits noted. Medical Decision & Procedures ER Provider Diagnostic Interpretation: My interpretation of an ECG shows a normal sinus rhythm of [address] elevation or other conduction abnormalities. My interpretation of a portable chest x-ray does not show any consolidations, pneumothorax or cardiac prominence. Radiologist report is as follows: SINGLE VIEW CHEST CLINICAL HISTORY: Left posterior rib pain. FINDINGS: An AP, portable, upright chest radiograph is compared to study dated 05/25/2016. The cardiomediastinal silhouette is unremarkable. The lungs and pleural spaces are clear. No pneumothorax is seen. The bony thorax is grossly intact. IMPRESSION: No active disease in the chest. Noncontrast CT of the abdomen and pelvis does not show any evidence for ureteral calculi, obstructive pattern or other concerning findings. Radiologist report is as follows: ABDOMEN AND PELVIS CT WITHOUT CONTRAST CT DOSE: 1306.81 mGy.cm HISTORY: L back/post rib pain/LLQ abd pain TECHNIQUE: Multiaxial CT images of the abdomen and pelvis were performed without contrast. A dose lowering technique was utilized adhering to the principles of ALARA. COMPARISON STUDY: Abdomen and pelvis CT 12/29/2016. FINDINGS: Mild air trapping at the lung bases. No pneumoperitoneum. No pneumatosis. No fractures within the visualized osseous structures. The unenhanced liver, spleen, pancreas, gallbladder, adrenal glands, and kidneys are unremarkable. No renal or ureteral calculi. No hydronephrosis. No retroperitoneal lymphadenopathy. The bladder, uterus, and right ovary are unremarkable. There is again noted a 2.5 cm cyst within the left ovary. This is not significant changed. There is trace intermediate density fluid within the deep pelvis. Suboptimal evaluation for bowel pathology due to the lack of intravenous and oral contrast. However, there is no definite bowel wall thickening or obstruction. Normal appendix. IMPRESSION: 1. No bowel wall thickening or obstruction. 2. Normal appendix. 3. No change in the 2.5 cm left ovarian cyst. 3. Trace pelvic free fluid. This is intermediate density may represent complex fluid or a small amount of blood products. Laboratory Results 01/17/18 18:20 Red Blood Count 4.85, Mean Corpuscular Volume 87.2, Mean Corpuscular Hemoglobin 29.5, Mean Corpuscular Hemoglobin Concent 33.8, Mean Platelet Volume 12.3, Neutrophils (%) (Auto) 62.2, Lymphocytes (%) (Auto) 28.1, Monocytes (%) (Auto) 7.4, Eosinophils (%) (Auto) 1.5, Basophils (%) (Auto) 0.3, Neutrophils # (Auto) 6.66, Lymphocytes # (Auto) 3.01, Monocytes # (Auto) 0.79, Eosinophils # (Auto) 0.16, Basophils # (Auto) 0.03 01/17/18 18:20 Test 01/17/18 00:00 01/17/18 18:20 01/17/18 18:50 Urine Color YELLOW Urine Appearance CLOUDY (CLEAR) Urine pH 6.0 (4.5-7.5) Urine Specific [place] 1.026 (1.000-1.030) Urine Protein NEG (NEG) Urine Glucose (UA) NEG (NEG) Urine Ketones NEG (NEG) Urine Occult Blood NEG (NEG) Urine Nitrite NEG (NEG) Urine Bilirubin NEG (NEG) Urine Urobilinogen NEG (NEG) Urine Leukocyte Esterase NEG (NEG) Urine WBC (Auto) 1-5 /hpf (0-5) Urine RBC (Auto) 0-4 /hpf (0-4) Urine Hyaline Casts (Auto) 1-5 /lpf (0-5) Urine Epithelial Cells (Auto) >30 /lpf (0-5) Urine Bacteria (Auto) NEG (NEG) Urine Test NEG (NEG) White Blood Count 10.70 K/uL (4.8-10.8) Red Blood Count 4.85 M/uL (4.2-5.4) Hemoglobin 14.3 g/dL (12.0-16.0) Hematocrit 42.3 % (37-47) Mean Corpuscular Volume 87.2 fL (80-100) Mean Corpuscular Hemoglobin 29.5 pg (25-34) Mean Corpuscular Hemoglobin Concent 33.8 g/dl (32-36) Platelet Count 239 K/uL (130-400) Mean Platelet Volume 12.3 fL (7.4-10.4) Neutrophils (%) (Auto) 62.2 % Lymphocytes (%) (Auto) 28.1 % Monocytes (%) (Auto) 7.4 % Eosinophils (%) (Auto) 1.5 % Basophils (%) (Auto) 0.3 % Neutrophils # (Auto) 6.66 K/uL (1.4-6.5) Lymphocytes # (Auto) 3.01 K/uL (1.2-3.4) Monocytes # (Auto) 0.79 K/uL (0.11-0.59) Eosinophils # (Auto) 0.16 K/uL (0-0.5) Basophils # (Auto) 0.03 K/uL (0-0.2) RDW Standard Deviation 42.6 fL (36.4-46.3) RDW Coefficient of Variation 13.3 % (11.5-14.5) Immature Granulocyte % (Auto) 0.5 % Immature Granulocyte # (Auto) 0.05 K/uL (0.00-0.02) Anion Gap 7.0 mmol/L (3-11) Est Creatinine Clear Calc Drug Dose 156.5 ml/min Estimated GFR () 137.2 Estimated GFR (Non- 118.4 BUN/Creatinine Ratio 18.2 (10-20) Calcium Level 8.8 mg/dl (8.5-10.1) Total Bilirubin 0.2 mg/dl (0.2-1) Direct Bilirubin < 0.1 mg/dl (0-0.2) Aspartate Amino Transf (AST/SGOT) 16 U/L (15-37) Alanine Aminotransferase (ALT/SGPT) 29 U/L (12-78) Alkaline Phosphatase 123 U/L (45-117) Total Creatine Kinase 45 U/L (26-192) Troponin I < 0.015 ng/ml (0-0.045) Total Protein 7.1 gm/dl (6.4-8.2) Albumin 3.6 gm/dl (3.4-5.0) Lipase 191 U/L (73-393) D-Dimer < 190 ug/L FEU (0-500) The above labs were reviewed and were grossly normal. Medications Administered Medications (Trade) Dose Ordered Sig/Eva Route Start Time Stop Time Status Last Admin Dose Admin Sodium Chloride 1,000 ml @ 999 mls/hr Q1H1M STAT IV 01/17/18 18:20 01/17/18 19:20 DC 01/17/18 18:47 999 MLS/HR Morphine Sulfate (MoRPHine SULFATE INJ) 4 mg NOW STAT IV 01/17/18 18:20 01/17/18 18:22 DC 01/17/18 18:44 4 MG Ondansetron HCl (Zofran Inj) 4 mg NOW STAT IV 01/17/18 18:20 01/17/18 18:22 DC 01/17/18 18:43 4 MG Procedure 1. IV hydration: The patient was administered a normal saline 1 L bolus. 2. IV medications:: The patient was initially administered morphine 4 mg and Zofran 4 mg IVP. The patient did require an additional dose of morphine 4 mg IVP prior to discharge. ED Course Patient history and physical exam were performed. Nurse's notes were reviewed. Vital signs were reviewed and were normal. The patient appears in moderate discomfort. IV access was established, and labs were drawn. Patient was hydrated with normal saline, and administered IV medications as discussed in the previous Procedure section. Labs were reviewed and were grossly normal. Urinalysis shows no hematuria or signs of infection. ECG and portable chest x- ray were normal. Noncontrast CT of the abdomen and pelvis was also I did discuss several different possibilities for her pain, including musculoskeletal as most likely. She was advised that her CT imaging and laboratory studies were normal. I did encourage her to follow-up with her PCP within the next 2-3 days for reevaluation. Return to the emergency department for any progressively worsening pain, persistent vomiting or developing fever. The patient was happy with plan of care, and voiced understanding of all discharge instructions. She did require an additional dose of morphine prior to discharge, and rated her pain a 5 out of 10. Medical Decision Patient presents to the emergency department with primary complaint of left back pain. Her workup today does not show any evidence for ureteral calculi, urinary tract infection, pneumonia, pneumothorax or acute cardiac etiology. Her d-dimer and troponin are normal, therefore I do not suspect a CO or pulmonary embolus. Her abdominal exam is benign, therefore I do not suspect peritonitis or appendicitis. The patient is afebrile and has no leukocytosis to suggest major infectious etiology. The patient does have discomfort to palpation of the left back region, suggestive of musculoskeletal etiology. There is no rash at this time to suggest herpes zoster. [employer] Monitoring Program Search Results: patient reviewed within database, no issues identified Medication Reconcilliation Current Medication List: was personally reviewed by me Blood Pressure Screening Patient's blood pressure: Normal blood pressure Impression Primary Impression: Left flank pain Departure Information Prescriptions Tramadol (Ultram) 50 Mg Tab 1 TAB PO Q4H Y for Pain, #15 TAB For Initial Treatment Prov: Tyree Perez PA 01/17/18 Referrals Kasia Grady (PCP) Patient Instructions My [facility]
[2018-01-17] MEDS ORDERED: ACET-1256 PO (21:05)
[2018-01-17] MEDS ORDERED: HYDR50CA2 PO (21:08)
== END 2018-01-17 21:21 | disposition home or self-care (01) ==
LOC: C.EDB 17:23
DX: R10.32 Left lower quadrant pain (principal); J45.909 Unspecified asthma, uncomplicated; J43.9 Emphysema, unspecified; F17.210 Nicotine dependence, cigarettes, uncomplicated; Z80.9 Family history of malignant neoplasm, unspecified; Z83.3 Family history of diabetes mellitus; Z84.1 Family history of disorders of kidney and ureter; Z83.79 Family history of other diseases of the digestive system; Z82.49 Family history of ischemic heart disease and other diseases of the circulatory system; Z79.899 Other long term (current) drug therapy; E66.01 Morbid (severe) obesity due to excess calories

== ENCOUNTER 2019-03-03 07:01 | Inpatient (IN) ==
[2019-03-03] MEDS: LACTATED RINGER'S 1,000 ML IV PRN ×2 (07:12→08:33)
[2019-03-03] MEDS ORDERED: OXYTOCIN 30 UNITS/500 ML BAG IV PRN ×3 (07:19→15:32)
[2019-03-03] MEDS ORDERED: ePHEDrine sulfate 50 MG/ML AMP ONE (07:32)
[2019-03-03] MEDS ORDERED: BUPIVACAINE 0.25% 30 ML VIAL ONE (07:32)
[2019-03-03] MEDS ORDERED: fentaNYL 2MCG/ML ROPIV 1.25MG/ML 100 ML BAG EPI ONE (07:33)
[2019-03-03] MEDS ORDERED: fentaNYL citrate 100 MCG/2 ML VIAL ONE (07:33)
[2019-03-03 07:54] LABS: Hematocrit (blood only) 32.3 % (37-47); Hemoglobin 10.7 g/dL (12.0-16.0); Mean Corpuscular Hemoglobin 30.1 pg (25-34); Mean Platelet Volume 12.4 fL (7.4-10.4); Platelet Count 181 K/uL (130-400); RDW Coefficient of Variation 13.7 % (11.5-14.5); RDW Standard Deviation 45.5 fL (36.4-46.3); Red Blood Count 3.55 M/uL (4.2-5.4)
--- NOTE | 2019-03-03 08:16 | Labor Progress Brief Note ---
Date of Service March 03, 2019 Met pt and friend Pt doing well Waiting for epidural analgesia Reviewed medical and OB Hx with pt anticipate VD Results & Data Vital Signs (Past 12 Hours) Vital Signs Temp Pulse Resp BP Pulse Ox 03/03/19 08:11 88 98 03/03/19 08:06 79 99 03/03/19 08:03 73 142/86 H 03/03/19 07:24 36.9 C 89 20 144/89 H
[2019-03-03] MEDS ORDERED: NALBUPHINE HCL INJ 10 MG/ML AMP IV PRN (08:25)
[2019-03-03] MEDS ORDERED: NALOXONE HCL 0.4 MG/1 ML VIAL/CARP IV PRN (08:25)
[2019-03-03] MEDS ORDERED: DiphenhydrAMINE HCL 50 MG/ML VIAL IV PRN (08:25)
[2019-03-03] MEDS ORDERED: NALOXONE HCL 1 MG in SODIUM CHLORIDE 0.9% 1000ML 1,000 ML IV PRN (08:25)
[2019-03-03] MEDS ORDERED: PROMETHAZINE HCL 6.25 MG in SODIUM CHLORIDE 0.9% 50 ML IV PRN (08:25)
[2019-03-03] MEDS ORDERED: ePHEDrine sulfate 50 MG/ML AMP IV PRN (08:25)
[2019-03-03] MEDS ORDERED: ONDANSETRON INJ 2 MG/ML 2 ML VIAL IV PRN (08:25)
--- NOTE | 2019-03-03 08:25 | Anesthesiology Consultation ---
Date of Service March 03, 2019 Assessment & Plan (1) Encounter for pre-operative examination: Chart Review Chart Review: Patient NOT seen in Pre Admission Testing and Acceptable Risk for Labor Epidural Consults Requested none ASA ASA2 Proposed Anesthesia Anesthesia Type: Labor Epidural Risk / Benefits Reviewed With: PT / POA / Parent / Guardian, Accepts Plan and Informed Consent Obtained History Height/Weight Height: 5 ft 5 in Weight: 109.032 kg Allergies Allergy/AdvReac Type Severity Reaction Status Date / Time Fish Containing Products Allergy Severe ANAPHYLAXIS Verified 01/24/19 17:59 shellfish derived Allergy Severe ANAPHYLAXIS Verified 01/24/19 17:59 Medications Home Medications Medication Instructions Recorded Confirmed Last Taken pediatric multivitamin no.76 2 tab PO DAILY 10/14/18 03/03/19 03/02/19 08:00 [Flintstones Complete] aspirin [Aspirin Childrens] 81 mg PO DAILY 01/24/19 03/03/19 03/01/19 08:00 ferrous sulfate 325 mg PO DAILY #30 tab 01/24/19 03/03/19 03/02/19 08:00 escitalopram oxalate [Lexapro] 10 mg PO DAILY 02/22/19 03/03/19 03/02/19 08:00 Active Medications Generic Name Dose Route Start Last Admin Trade Name Freq PRN Reason Stop Dose Admin Lactated Ringer's 1,000 mls @ 125 mls/hr 03/03/19 07:19 03/03/19 07:51 Lr IV 03/05/19 07:18 125 mls/hr .Q8H PRN Infusion L&D Protocol Protocol NPO Date Last Intake of Fluids: 03/03/19 Time Last Intake of Fluids: 06:00 Date Last Intake of Solids: 03/02/19 Time Last Intake of Solids: 20:00 Past Medical History Medical History Concussion (Resolved) Hand laceration (Resolved) Ankle fracture (Resolved) labor (Resolved 04/16/13) Pharyngitis (Resolved) Sinusitis (Resolved) Asthma (Resolved) Bronchitis (Resolved) Emphysema lung (Resolved) Injury, nerve, sciatic (Chronic) Spasm of back muscles (Resolved) Asthmatic bronchitis (Acute) Contusion of left ankle (Acute) Contusion of left hip (Acute) Contusion of right hand (Acute) Right shoulder pain (Acute) Exercise / Class Metabolic Activity II 4-5 Yardwork/Stairs/Walk up hill Past Family History Family History Other No pertinent family history Past Surgical History Surgical History History of ankle surgery History of tonsillectomy and adenoidectomy Past Anesthesia History No Hx of Anesthesia Complications and No Family Hx of Anesthesia Complications History of PONV No Hx of PONV and No Hx of Motion Sickness Social History Smoking Status: Light tobacco smoker tobacco type: cigarettes Smoking cigarettes per day: 10 Do You Dip or Chew Tobacco: No Hx Alcohol Use: No Hx Substance Use: No substance use type: does not use Physical Exam Vital Signs Last Vital Signs Temp 36.9 C 03/03/19 07:24 Pulse 80 03/03/19 08:22 Resp 20 03/03/19 07:24 BP 162/113 H 03/03/19 08:22 Pulse Ox 99 03/03/19 08:21 ENMT Mouth: no dentition abnormality Thyromental Distance: > or= 3.5 Finger Breadths Mallampati Class: II tongue ring (removed) Neck normal visual inspection Respiratory normal respiratory effort Auscultation: lungs clear to auscultation bilaterally Cardiovascular Rate/Rhythm: regular rate and regular rhythm Psychiatric Orientation: alert Testing Laboratory Results 03/03/19 07:41
[2019-03-03 08:34] LABS: Mean Corpuscular Hgb Conc 33.1 g/dL (32-36)
[2019-03-03] MEDS ORDERED: miSOPROStol 50 MCG TAB ONE (09:23)
--- NOTE | 2019-03-03 12:34 | Labor Progress Brief Note ---
Date of Service March 03, 2019 Pt doing well No complaints AROM - clear FHR; CAT1 Ctx 4-5mins VE 6-7/80/0 Plan Starting Pitocin augmentation Results & Data Vital Signs (Past 12 Hours) Vital Signs Temp Pulse Resp BP Pulse Ox 03/03/19 12:31 70 100 03/03/19 12:28 71 93 03/03/19 12:27 74 125/70 03/03/19 12:26 71 100 03/03/19 12:24 37.1 C 20 03/03/19 12:21 64 98 03/03/19 12:16 72 98 03/03/19 12:11 65 120/64 96 03/03/19 12:06 72 97 03/03/19 12:01 66 96 03/03/19 11:57 67 116/64 03/03/19 11:56 66 98 03/03/19 11:51 68 98 03/03/19 11:46 76 97 03/03/19 11:41 74 119/63 98 03/03/19 11:36 73 99 03/03/19 11:31 78 98 03/03/19 11:29 72 113/65 03/03/19 11:26 71 99 03/03/19 11:21 78 97 03/03/19 11:16 69 100 03/03/19 11:11 73 130/74 99 03/03/19 11:06 69 100 03/03/19 11:01 73 99 03/03/19 10:56 83 131/59 L 100 03/03/19 10:51 69 100 03/03/19 10:46 77 99 03/03/19 10:43 72 85 L 03/03/19 10:41 79 104/58 L 100 03/03/19 10:36 72 100 03/03/19 10:31 74 100 03/03/19 10:27 83 117/80 03/03/19 10:26 76 100 03/03/19 10:21 71 100 03/03/19 10:16 71 100 03/03/19 10:11 75 20 130/70 99 03/03/19 10:06 80 100 03/03/19 10:01 75 99 03/03/19 09:56 76 132/72 98 03/03/19 09:51 69 100 03/03/19 09:46 80 98 03/03/19 09:42 75 134/71 03/03/19 09:41 70 100 03/03/19 09:36 76 100 03/03/19 09:31 37.1 C 84 20 99 03/03/19 09:26 88 131/70 99 03/03/19 09:21 85 100 03/03/19 09:16 71 100 03/03/19 09:11 82 141/67 H 99 03/03/19 09:06 74 99 03/03/19 09:01 73 100 03/03/19 08:57 85 155/86 H 03/03/19 08:56 88 99 03/03/19 08:51 81 100 03/03/19 08:46 65 100 03/03/19 08:41 105 H 131/78 100 03/03/19 08:36 96 H 98 03/03/19 08:31 77 99 03/03/19 08:26 87 97 03/03/19 08:25 95 H 129/82 03/03/19 08:24 78 126/75 03/03/19 08:22 80 162/113 H 03/03/19 08:21 79 99 03/03/19 08:19 78 150/86 H 03/03/19 08:18 82 155/93 H 03/03/19 08:16 84 98 03/03/19 08:15 75 135/80 03/03/19 08:11 88 98 03/03/19 08:06 79 99 03/03/19 08:03 73 142/86 H 03/03/19 07:24 36.9 C 89 20 144/89 H
[2019-03-03] MEDS: fentaNYL 2MCG/ML ROPIV 1.25MG/ML 100 ML BAG EPI PRN ×2 (13:45→14:16)
[2019-03-03] MEDS ORDERED: METHYLERGONOVINE MALEATE 0.2 MG/ML AMP ONE (14:51)
[2019-03-03] MEDS ORDERED: miSOPROStol 200 MCG TAB PR ONE (15:32)
[2019-03-03] MEDS ORDERED: ACETAMINOPHEN 325 MG TAB PO PRN (15:32)
[2019-03-03] MEDS ORDERED: HYDROCORTISONE ACETATE 25 MG SUPP PR PRN (15:32)
[2019-03-03] MEDS ORDERED: BISACODYL 10 MG SUPP PR PRN (15:32)
[2019-03-03] MEDS ORDERED: BENZOCAINE 20% AER SPR 82.5 GM CAN EXT PRN (15:32)
[2019-03-03] MEDS ORDERED: METHYLERGONOVINE MALEATE 0.2 MG/ML AMP IM ONE (15:32)
[2019-03-03] MEDS ORDERED: SUPERCREAM 0.870% 15 GM JAR EXT PRN (15:32)
[2019-03-03] MEDS ORDERED: DIPHTHERIA/TETANUS/PERTUSSIS 0.5 ML SYR/VIAL IM ONE (15:32)
--- NOTE | 2019-03-03 16:11 | Anesthesia Procedure Note ---
Date of Service March 03, 2019 Anesthesia Post Epidural Note Vital Signs Vital Signs: Temp Pulse Resp BP Pulse Ox 37 C 74 20 126/61 85 L 03/03/19 15:26 03/03/19 15:56 03/03/19 15:26 03/03/19 15:56 03/03/19 14:46 Pain Intensity Abdomen: Pain Intensity: 0 Notes Mental Status: alert / awake / arousable Nausea / Vomiting: adequately controlled Pain: adequately controlled Airway Patency, RR, SpO2: stable & adequate BP & HR: stable & adequate Hydration State: stable & adequate Neuraxial Anesthesia: was administered and sensory block is resolving Anesthetic Complications: no major complications apparent and Pt Satisfied with anesthetic care Epidural: Removed without complications and With tip intact
--- NOTE | 2019-03-03 16:37 | Delivery Summary ---
DATE OF OPERATION: 03/03/2019 The patient delivered a live infant female in left occiput anterior presentation. There was no nuchal cord. Infant was delivered, placed on mother's abdomen. Cord was clamped and cut. Cord clamp was done after 1 minute. Cord blood was obtained. Placenta was spontaneously delivered. Inspection of the perineum showed a left labial laceration which was repaired with 3-0 Vicryl in layers. There was good hemostasis post repair. Inspection of the perineum showed no other lacerations. ESTIMATED BLOOD LOSS: 500 mL. The patient and mother are doing well in recovery. There was good hemostasis. All instruments were removed from the vagina and accounted for x2 including sponges, needles and retractors. I attest to the content of the Intraoperative Record and any orders documented therein. Any exception s are noted below.
[2019-03-03] MEDS: IBUPROFEN 600 MG TAB PO PRN (18:53)
[2019-03-03] MEDS ORDERED: ZOLPIDEM TARTRATE 10 MG TAB PO PRN (20:14)
[2019-03-03] MEDS: DOCUSATE SODIUM 100 MG CAP PO SCH (20:35)
[2019-03-04] MEDS: IBUPROFEN 600 MG TAB PO PRN (04:19)
[2019-03-04 06:02] LABS: Hematocrit (blood only) 31.9 % (37-47); Hemoglobin 10.6 g/dL (12.0-16.0); Mean Corpuscular Hemoglobin 30.3 pg (25-34); Mean Corpuscular Hgb Conc 33.2 g/dL (32-36); Mean Corpuscular Volume 91.1 fL (80-100); Mean Platelet Volume 12.4 fL (7.4-10.4); Platelet Count 133 K/uL (130-400); RDW Coefficient of Variation 13.9 % (11.5-14.5); RDW Standard Deviation 45.8 fL (36.4-46.3); White Blood Count 9.47 K/uL (4.8-10.8)
[2019-03-04] MEDS ORDERED: FERROUS SULFATE 325 MG TAB PO SCH (08:00)
[2019-03-04] MEDS ORDERED: PRENATAL VITAMIN 1 TAB PO SCH (08:00)
[2019-03-04] MEDS: DOCUSATE SODIUM 100 MG CAP PO SCH (09:17)
--- NOTE | 2019-03-04 09:33 | Obstetrical Progress Note ---
Date of Service March 04, 2019 Subjective ants to go home has some crying due to adoption of baby ready to leave Physical Exam Constitutional: WD/WN, vitals as above comfortable abdomen soft and non- tender fundus firm neg Ashutosh's for discharge follow up in office Results & Data Vital Signs (Past 12 Hours) Vital Signs Temp Pulse Resp BP Pulse Ox 03/04/19 08:36 36.9 C 70 18 140/81 97 03/04/19 04:15 36.5 C 82 16 122/71 98 03/03/19 23:25 36.9 C 65 18 116/63 97 Laboratory Results Laboratory Results - last 72 hr 03/03/19 03/04/19 07:41 05:49 WBC 10.10 9.47 RBC 3.55 L 3.50 L Hgb 10.7 L 10.6 L Hct 32.3 L 31.9 L MCV 91.0 91.1 MCH 30.1 30.3 MCHC 33.1 33.2 RDW Std Deviation 45.5 45.8 RDW Coeff of Alina 13.7 13.9 Plt Count 181 133 MPV 12.4 H 12.4 H
[2019-03-04] MEDS ORDERED: BISACODYL 5 MG TABEC PO SCH (20:00)
== END 2019-03-04 10:14 | disposition home or self-care (01) | DRG 807 ==
LOC: OPB 07:01 → 4S1 07:06 → 4N 17:42